=== PATIENT | female | born 1940 | race Caucasian/White ===

== ENCOUNTER 2019-07-23 10:39 | Outpatient (CLI) | payer MEDICARE, SELFPAY ==
[2019-07-23] MEDS: DENOSUMAB 60 MG/ML SYRINGE SUB-Q (10:59)
--- NOTE | 2019-07-23 11:09 | PC.NURSE ---
Patient here for annual Prolia injection. No concerns. Gave medication info to patient. Tolerated injection well. Safe exit of hospital.
== END 2019-07-23 10:40 | disposition home or self-care (01) ==
PROVIDERS: PCP Internal Medicine; Visit Provider Internal Medicine
DX: M81.0 Age-related osteoporosis without current pathological fracture (principal)
CPT/HCPCS: 96372; J0897

== ENCOUNTER 2020-01-23 11:56 | Outpatient (CLI) | payer MEDICARE, SELFPAY ==
[2020-01-23] MEDS: DENOSUMAB 60 MG/ML SYRINGE SUB-Q (12:12)
[2020-01-23 12:22] VITALS: BP 121/70; PULSE 64; RESP 16; TEMP 36.6; O2SAT 100
--- NOTE | 2020-01-23 12:24 | PC.NURSE ---
Patient here for annual Prolia injection. Has had injection before. Declines teaching/education at this time. Prolia injection given see MAR. Tolerated injection well. Safe exit of hospital.
== END 2020-01-23 11:57 | disposition home or self-care (01) ==
PROVIDERS: PCP Internal Medicine; Visit Provider Internal Medicine
DX: M81.0 Age-related osteoporosis without current pathological fracture (principal)
CPT/HCPCS: 96372; J0897

== ENCOUNTER 2020-07-23 13:06 | Outpatient (CLI) | payer MEDICARE, SELFPAY ==
[2020-07-23] MEDS: DENOSUMAB 60 MG/ML SYRINGE SUB-Q (13:19)
== END 2020-07-23 13:07 | disposition home or self-care (01) ==
PROVIDERS: PCP Internal Medicine; Visit Provider Internal Medicine
DX: M81.0 Age-related osteoporosis without current pathological fracture (principal)
CPT/HCPCS: 96372; J0897

== ENCOUNTER 2020-07-29 13:04 | Outpatient (CLI) | payer MEDICARE, SELFPAY ==
--- NOTE | ~2020-07-29 | DEXA_ITS ---
Bone Density Report Name: Reena Muro Age: 80 Sex: Female Ethnicity: White Date of : 1940 Indication: hyperparathyroidism; height loss; prior fracture; Referring Provider: Adithya Waite Study: Bone densitometry was performed. Exam Date: July 29, 2020 Accession number: [id number] Bone Density: Region BMD T-score Z-score Classification AP Spine(L1, L2, L3) 0.802 -2.0 0.6 Osteopenia Femoral Neck (Left) 0.691 -1.4 0.8 Osteopenia Total Hip (Left) 0.613 -2.7 -0.7 Osteoporosis Femoral Neck (Right) 0.651 -1.8 0.4 Osteopenia Total Hip (Right) 0.654 -2.4 -0.4 Osteopenia Femoral Neck Mean 0.671 -1.6 0.6 Osteopenia Total Hip Mean 0.634 -2.5 -0.6 Osteoporosis World Health Organization criteria for BMD impression classify patients as: Normal (T-score at or above -1.0), Osteopenia (T-score between -1.0 and -2.5), or Osteoporosis (T-score at or below -2.5). 10-year Fracture Risk: FRAX not reported because: Some T-score for Spine Total or Hip Total or Femoral Neck at or below -2.5 Prior hip or vertebral fracture Treated for osteoporosis Clinical Information Provided by Patient: Have had a previous hip or vertebral fracture Has had a low trauma fracture Is being treated for osteoporosis Has used the following medications: Prolia (i.e. denosumab), Vitamin D Has the following medical conditions: Hyperparathyroidism Patient maximum height was 66 Menopause Age: 49 No regular weight bearing exercise Drinks caffeinated beverages Onset of menses at age 15 Number of children 0 Impression: The patient has established osteoporosis, based on the Left Total Hip T-score and the existence of a prior fracture. The patient has risk factors, including: previous fracture. Discussion: It is important to ask patients whether they are taking their medications and to encourage continued and appropriate compliance with their osteoporosis therapies to reduce fracture risk. It is also important to review their risk factors and encourage appropriate calcium and vitamin D intakes, exercise, fall prevention and other lifestyle measures. Follow-Up: Consider a repeat BMD and Vertebral Fracture Assessment (VFA) exam in 2 years or sooner if medically necessary, to reassess this patient's status. Reported by: Dr. Jos Dixon on 07/29/2020 1:45:00 PM. Reviewed, dictated and finalized at location A. [facility]
== END 2020-07-29 13:05 | disposition home or self-care (01) ==
LOC: CHSIMG 13:05
PROVIDERS: PCP Internal Medicine; Visit Provider Internal Medicine
DX: M81.0 Age-related osteoporosis without current pathological fracture (principal)
CPT/HCPCS: 77080

== ENCOUNTER 2021-02-19 10:56 | Outpatient (CLI) | payer MEDICARE, OTHER, SELFPAY ==
[2021-02-19 11:05] VITALS: BP 129/66; PULSE 68; RESP 16; TEMP 36.8; O2SAT 98; BMI 21.3
[2021-02-19] MEDS: DENOSUMAB 60 MG/ML SYRINGE SUB-Q (11:10)
--- NOTE | 2021-02-19 11:11 | PC.NURSE ---
Patient here for Prolia injection. Had it about 6 months ago. NO concerns voiced. Injection given- see JUL. Tolerated well. Safe exit of hospital. Will return need again August. Will call for an appointment with new order.
== END 2021-02-19 10:57 | disposition home or self-care (01) ==
LOC: CHSTREATRM 11:00
PROVIDERS: PCP Internal Medicine; Visit Provider Internal Medicine
DX: M81.0 Age-related osteoporosis without current pathological fracture (principal)
CPT/HCPCS: 96372; J0897

== ENCOUNTER 2021-07-14 15:46 | Outpatient (CLI) | payer MEDICARE, OTHER, MEDICAID, SELFPAY ==
--- NOTE | ~2021-07-14 | XR_ITS ---
EXAMINATION: XR hand RT min 3V DATE: 07/14/2021 16:06 INDICATION: Right hand pain with limited movement and swelling TECHNIQUE: Posteroanterior, oblique and lateral views of the right hand were obtained. COMPARISON: 07/10/2010 FINDINGS: Diffuse osteopenia. No fracture. Advanced osteoarthritis at the first carpometacarpal joint with incr ease in dorsal subluxation and volar sided remodeling at the base of the first metacarpal. Alignment is otherwise normal. Additional mild polyarticular osteoarthritis at the midcarpal, triscaphe and mul tiple metacarpophalangeal and interphalangeal joints. IMPRESSION: 1. Advanced osteoarthritis at the first carpometacarpal joint. Reviewed, dictated and finalized at location A. [facility] [employer]
== END 2021-07-14 15:47 | disposition home or self-care (01) ==
LOC: CHSIMG 15:50
PROVIDERS: PCP Internal Medicine; Visit Provider Internal Medicine
DX: M79.641 Pain in right hand (principal)
CPT/HCPCS: 73130

== ENCOUNTER 2021-09-04 13:11 | Outpatient (CLI) | payer MEDICARE, OTHER, MEDICAID, SELFPAY ==
[2021-09-04 13:18] VITALS: BMI 20.9
[2021-09-04 13:19] VITALS: BP 120/63; PULSE 72; RESP 14; TEMP 36.6; O2SAT 97
[2021-09-04] MEDS: DENOSUMAB 60 MG/ML SYRINGE SUB-Q (13:25)
--- NOTE | 2021-09-04 13:27 | PC.NURSE ---
Patient here for q 6 month Prolia injection. Education given. No concerns voiced. Prolia injection administered see MAR. Tolerated well. Safe exit of hospital.
== END 2021-09-04 13:12 | disposition home or self-care (01) ==
LOC: CHSTREATRM 13:14
PROVIDERS: PCP Internal Medicine; Visit Provider Internal Medicine
DX: M81.0 Age-related osteoporosis without current pathological fracture (principal)
CPT/HCPCS: 96372; J0897

== ENCOUNTER 2022-01-05 09:55 | Outpatient (CLI) | payer MEDICARE, OTHER, MEDICAID, SELFPAY ==
--- NOTE | ~2022-01-05 | MR_ITS ---
EXAMINATION: MR cervical spine wo con DATE: 01/05/2022 11:11 INDICATION: Chronic neck pain TECHNIQUE: Magnetic resonance imaging (MRI) of the cervical spine was performed without intravenous c ontrast. Sequences included sagittal T2-weighted FSE, sagittal T2-weighted FS FSE, sagittal T1-weight ed FSE, axial MERGE and axial T2-weighted FSE. COMPARISON: None FINDINGS: Mild reversal of the normal lordosis in the lower cervical spine. 2 mm anterolisthesis C4 on C5, one- 2 mm retrolisthesis C6 on C7 and 1 mm anterolisthesis C7 on T1. Severe disc height loss with degenera tive endplate changes and remodeling results in minimal anterior vertebral body height loss at C5 and C6. Remaining vertebral body heights are normal. Moderate disc height loss at C6-C7. Mild disc heigh t loss at C4-C5 and C7-T1. There are annular fissures at each of these levels. Prominent fibrovascula r endplate changes associated with the severe disc height loss at both C5 and C6. Additional mild fib rovascular degenerative endplate changes along the superior endplate of C7. Marrow signal is otherwis e normal. Cord signal intensity is normal. Cervical soft tissues are unremarkable. The following disc levels are specifically discussed: C2-C3: The disc does not extend beyond the endplate margin. There is mild left uncovertebral joint os teoarthritis. There is moderate right and severe left facet joint osteoarthritis. There is mild left neural foraminal stenosis. There is no central canal stenosis. C3-C4: Disc is mildly bulging. There is moderate bilateral uncovertebral joint osteoarthritis. There is moderate right and severe left facet joint osteoarthritis. There is mild right and moderate left n eural foraminal stenosis. There is mild central canal stenosis. C4-C5: Disc is bulging. There is moderate right and severe left uncovertebral joint osteoarthritis. T here is moderate right and severe left facet joint osteoarthritis. There is mild right and moderate l eft neural foraminal stenosis. There is mild central canal stenosis. C5-C6: Posterior disc osteophyte complex is present. There is severe bilateral uncovertebral joint os teoarthritis. There is moderate right and mild left facet joint osteoarthritis. There is moderate meghna ateral neural foraminal stenosis. There is mild to moderate central canal stenosis measuring 7 mm AP in the mid sagittal plane. Secondary deformation of the cord with mild indentation of the ventral diamond face and with decreased AP diameter and increased ovjd-ge-nstum diameter of the cord C6-C7: Disc is bulging. There is severe bilateral uncovertebral joint osteoarthritis. There is mild l eft and moderate right facet joint osteoarthritis. There is moderate bilateral, left greater than rig ht neural foraminal stenosis. There is mild to moderate central canal stenosis measuring 8-9 mm AP in the mid sagittal plane and with flattening of the ventral surface of the cord. C7-T1: Disc is mildly bulging. There is mild bilateral uncovertebral joint osteoarthritis. There is m oderate right and severe left facet joint osteoarthritis. There is mild bilateral neural foraminal st enosis. There is mild central canal stenosis. IMPRESSION: 1. Severe cervical spondylosis. Reviewed, dictated and finalized at location A.
--- NOTE | ~2022-01-05 | XR_ITS ---
EXAM: XR_CERV2-3V_CR DATE: 01/05/2022 10:22 HISTORY: chronic neck pain . COMPARISON: 04/11/2012. FINDINGS: Craniocervical association and atlantoaxial joint are aligned, with moderate degenerative changes. No prevertebral soft tissue swelling. Grade 1 trace anterolisthesis of C2 on C3 and C3 on C4 . Grade 2 anterolisthesis of C4 on C5. Severe disc height loss with sclerosis and osteophytosis worst at at C5-6 but also severe at C6-7. Multilevel facet sclerosis and hypertrophy. IMPRESSION: Grade 2 anterolisthesis of C4 on C5. Severe degenerative disc disease at C5-6 and C6-7. M ultilevel severe facet arthropathy. Overall the degenerative changes have progressed since the prior study. Reviewed, dictated and finalized at location K. IMPRESSION: Grade 2 anterolisthesis of C4 on C5. Severe degenerative disc disea se at C5-6 and C6-7. Multilevel severe facet arthropathy. Overall the degenerat emily changes have progressed since the prior study.
== END 2022-01-05 09:56 | disposition home or self-care (01) ==
LOC: CHSIMG 09:57
PROVIDERS: PCP Internal Medicine; Visit Provider Internal Medicine
DX: M54.2 Cervicalgia (principal)
CPT/HCPCS: 72040; 72141

== ENCOUNTER 2022-07-30 12:24 | Outpatient (CLI) | payer MEDICARE, OTHER, SELFPAY ==
[2022-07-30] MEDS: DENOSUMAB 60 MG/ML SYRINGE SUB-Q (12:43)
[2022-07-30 13:54] VITALS: BMI 22.6
== END 2022-07-30 12:25 | disposition home or self-care (01) ==
PROVIDERS: PCP Internal Medicine; Visit Provider Internal Medicine
DX: M81.0 Age-related osteoporosis without current pathological fracture (principal)
CPT/HCPCS: 96372; J0897

== ENCOUNTER 2022-08-08 09:51 | Emergency (ER) | payer MEDICARE, OTHER, SELFPAY ==
--- NOTE | ~2022-08-08 | CT_ITS ---
EXAMINATION: CT pelvis wo con DATE: 08/08/2022 10:49 INDICATION: Low back pain. TECHNIQUE: Computed tomography (CT) of the pelvis was performed without intravenous contrast. Automat ed exposure control and iterative reconstruction technique were employed. The dose-length product was 203.89 mGy-cm. COMPARISON: CT abdomen and pelvis 04/23/2015 FINDINGS: There is a 2 mm stone in right kidney. There is mild bilateral hydronephrosis, likely secon pio to bladder distention. There is diverticulosis of the colon without evidence of diverticulitis. There are no dilated loops of bowel. The appendix is not visualized. There are no pathologically enla rged lymph nodes. There is no free intraperitoneal fluid. There is lumbar levoscoliosis and severe sp ondylosis. There is a chronic burst fracture of L5. No acute fracture. There is moderate osteoarthrit is of the right hip and severe osteoarthritis of left hip. There is a loose body in left hip joint. IMPRESSION: 1. Moderate osteoarthritis of right hip and severe osteoarthritis of left hip with loose body in left hip joint. Reviewed, dictated and finalized at location A. IMPRESSION: 1. Moderate osteoarthritis of right hip and severe osteoarthritis of left hip w ith loose body in left hip joint.
--- NOTE | ~2022-08-08 | CT_ITS ---
EXAMINATION: CT lumbar spine wo con DATE: 08/08/2022 10:49 INDICATION: Back pain. TECHNIQUE: Computed tomography (CT) of the lumbar spine was performed without intravenous contrast. A utomated exposure control and iterative reconstruction technique were employed. The dose-length produ ct was 692.50 mGy-cm. COMPARISON: None FINDINGS: There is 14 degrees levoscoliosis of lumbar spine. There is 9 mm anterolisthesis of L4 on L 5. There is a chronic compression fracture of L2 with less than 1/5 loss of height. There is a burst fracture of L3 with 1/5 loss of height and retropulsion of bone 2 mm into central spinal canal. There is a chronic burst fracture of L5 with 2/5 loss of height and retropulsion of bone 3 mm into central spinal canal. There is severely decreased disc height at L1-L2, moderately decreased disc height at L2-L3, mildly decreased disc height from L3-L4 through L5-S1. There is Baastrup disease at L3-L4. The following disc levels are specifically discussed: L1-L2: The disc is bulging. There is moderate bilateral facet joint osteoarthritis. There is mild meghna ateral neural foraminal stenosis. There is mild central canal stenosis. L2-L3: The disc is bulging. There is severe bilateral facet joint osteoarthritis. There is mild bilat eral neural foraminal stenosis. There is mild central canal stenosis. L3-L4: The disc is bulging. There is severe bilateral facet joint osteoarthritis. There is mild bilat eral neural foraminal stenosis. There is mild central canal stenosis. L4-L5: The disc is bulging. There is severe bilateral facet joint osteoarthritis. There is mild bilat eral neural foraminal stenosis. There is severe central canal stenosis. L5-S1: The disc is bulging. There is severe bilateral facet joint osteoarthritis. There is mild bilat eral neural foraminal stenosis. There is mild central canal stenosis. IMPRESSION: 1. L3 burst fracture, likely acute or subacute. 2. Severe lumbar spondylosis. 3. Lumbar levoscoliosis. Reviewed, dictated and finalized at location A.
[2022-08-08 11:00] VITALS: BP 137/74; PULSE 70; RESP 18; O2SAT 96
[2022-08-08 11:10] LABS: Appearance Urine Clear (Clear); Bilirubin Urine Negative (Negative); Blood Urine Negative (Negative); Color Urine Light Yellow (Yellow); Glucose Urine UA Negative (Negative); Ketones Urine Negative (Negative); Leukocyte Esterase Ur Negative LEU/UL (Negative); Nitrate Urine Negative (Negative); Protein Urine Negative (Negative); Urobilinogen Urine 0.2 mg/dL (0.2-1.0)
[2022-08-08 11:12] LABS: Add Urine Microscopic? NO
--- NOTE | 2022-08-08 11:13 | ED.BACK ---
HPI - Back Pain/Injury General Chief Complaint: Back Pain/Injury Stated Complaint: lower back pain Time Seen by Provider: 08/08/22 10:07 Source: patient Mode of arrival: ambulatory Limitations: no limitations History of Present Illness HPI Narrative: 82 year old female presents to the Emergency Department complaining of pain to right sacral region. Patient states onset 3 days ago. She was seen by her Primary Care Physician and given injection of steroids and advised to take Tylenol. She is supposed to follow up tomorrow, but states she cannot wait. States pain is too much. Pain with certain movements. Denies trauma. Denies urinary tract symptoms. States she does have a history of sciatica in the past. States the pain does not radiate down her leg. Denies any numbness or tingling. MD elicited complaint: back pain Onset (ago): day(s) (3) Timing: intermittent Severity: severe Similar Symptoms Previously: Yes Quality: sharp Location: sacrum Radiation: none Exacerbating factors: movement Relieving factors: other (certain positions) Associated symptoms: difficulty walking Treatments prior to arrival: acetaminophen and other medications (steroid injection) Work related injury: No Related Data Home Medications Medication Instructions Recorded Confirmed levothyroxine 50 mcg tablet 50 mcg PO DAILY 09/04/21 08/08/22 Allergies Allergy/AdvReac Type Severity Reaction Status Date / Time No Known Allergies Allergy Verified 08/08/22 10:02 Review of Systems Review of Systems: All systems reviewed & are unremarkable except as noted in HPI and below Constitutional: Constitutional: Reports as per HPI, Reports no additional constitutional complaints, Denies chills, Denies fever(s) and Denies weakness Eyes: Eyes: Reports as per HPI ENT: Reports system reviewed and no additional complaints, except as documented Cardiovascular: Cardiovascular: Reports as per HPI Respiratory: Respiratory: Reports as per HPI Gastrointestinal: Gastrointestinal: Reports as per HPI, Denies diarrhea, Denies nausea and Denies vomiting Genitourinary: Genitourinary: Reports no additional female genitourinary complaints, Denies nocturia and Denies dysuria Musculoskeletal: Musculoskeletal: Reports no additional musculoskeletal complaints, Reports as per HPI and Reports back pain Integumentary/Breasts: Skin/Breast: Reports system reviewed and no additional complaints, except as docu Neurologic: Reports system reviewed and no additional complaints, except as documented, Denies focal weakness, Denies numbness and Denies weakness Psychiatric: Psychiatric: Reports no additional psychiatric complaints Endocrine: Endocrine: Reports no additional endocrine complaints Hematologic/Lymphatic: Hematologic/Lymphatic: Reports no additional hematologic/lymphatic complaints Allergic/Immunologic: Allergic/Immunologic: Reports no additional allergic/immunologic complaints FORMERLY [facility], [facility] Past Medical History Medical History (Updated 08/08/22 @ 11:40 by Bernardo Schaeffer MD) Compression fracture of lumbar vertebra, non-traumatic Exam Const: General: healthy appearing Nutritional Appearance: well nourished Orientation/consciousness: patient oriented x3 Limitations: no limitations HENMT: Head: normal to inspection Ears: external ears normal Face/Nose/Sinus: Normal external nose present Face and sinus: normal facial exam Eyes: Conjunctivae: conjunctivae normal Pupils: Equal, round and reactive pupils present EOM: EOMs intact bilaterally Direct Ophthalmoscopy: no photophobia Neck: Neck: normal visual inspection Chest: Chest palpation & inspection: normal inspection of the chest Resp: Effort & Inspection: normal respiratory effort Auscultation: clear to auscultation bilaterally Cardio: Rate: regular rate Rhythm: regular rhythm GI: Inspection: non-distended GI Palp: Yes Soft to palpation, No Tenderness to palpation present (GI), No Guarding due to palpa
== END 2022-08-08 11:48 | disposition home or self-care (01) ==
PROVIDERS: Emergency Provider Emergency Medicine; PCP Internal Medicine
DX: M48.56XA Collapsed vertebra, not elsewhere classified, lumbar region, initial encounter for fracture (principal)
CPT/HCPCS: 72131; 72192; 81003; 99284

== ENCOUNTER 2022-08-14 06:06 | Outpatient (CLI) | payer MEDICARE, OTHER, SELFPAY ==
--- NOTE | ~2022-08-14 | MR_ITS ---
MRI of the lumbar spine Clinical History: L3 fracture Technique: Axial T2-weighted images, and sagittal T1-weighted, T2-weighted, and T2 fat-sat images wer e acquired. Findings: There is acute compression fracture of L3, with marrow edema and mild loss of height. There is a late subacute to chronic compression fracture of L5, with central endplate depression and possi ble minimal marrow edema present. No other fracture identified. 8 mm anterolisthesis of L4 over L5 no ronn. At L1-L2, there is mild facet joint hypertrophy. Minimal disc bulge present. No spinal canal stenosis . There is probable mild to moderate bilateral neural foraminal narrowing. At L2-L3, there is mild disc bulge with facet joint arthropathy. No betty spinal canal stenosis. Ther e is moderate right neural foraminal narrowing and mild left neural foraminal narrowing. At L3-L4, there is facet arthropathy with minimal disc bulge. No betty spinal canal stenosis. Bilater al neural foramina are preserved. At L4-L5, disc bulge and uncovering, with facet arthropathy, result in severe spinal canal stenosis/t hecal sac compression. There is moderate bilateral neural foraminal narrowing. At L5-S1, there is facet arthropathy and minimal disc bulge. No spinal canal stenosis. There is moder ate left neural foraminal narrowing and minimal right neural foraminal narrowing. Paravertebral soft tissues are unremarkable. Impression: Acute L3 compression fracture, as detailed above. Late subacute to chronic L5 compression fracture, as detailed above. 8 mm anterolisthesis of L4 over L5. Severe degenerative spondylosis at L4-L5, as detailed above. Mild to moderate degenerative spondylitic changes at the remaining lumbar levels. Reviewed, dictated and finalized at [facility]. Impression: Acute L3 compression fracture, as detailed above. Late subacute to chronic L5 compression fracture, as detailed above. 8 mm anterolisthesis of L4 over L5. Severe degenerative spondylosis at L4-L5, as detailed above. Mild to moderate degenerative spondylitic changes at the remaining lumbar level s.
== END 2022-08-14 06:07 | disposition home or self-care (01) ==
PROVIDERS: PCP Internal Medicine; Visit Provider Internal Medicine
DX: S32.030A Wedge compression fracture of third lumbar vertebra, initial encounter for closed fracture (principal); M43.16 Spondylolisthesis, lumbar region
CPT/HCPCS: 72148

== ENCOUNTER 2022-08-20 09:42 | Outpatient (CLI) | payer MEDICARE, OTHER, SELFPAY ==
--- NOTE | ~2022-08-20 | US_ITS ---
EXAMINATION: US venous doppler [facility] DATE: 08/20/2022 10:24 INDICATION: Lower limb edema. TECHNIQUE: Grayscale ultrasound images without and with compression and Doppler ultrasound images of the bilateral lower extremity veins were obtained. COMPARISON: None. FINDINGS: The visualized portions of right common femoral vein, profunda (deep) femoral vein, femoral vein, pop liteal vein, peroneal veins, posterior tibial veins, and greater saphenous vein outflow are patent. The visualized portions of left common femoral vein, profunda femoral vein, femoral vein, popliteal v ein, peroneal veins, posterior tibial veins, and greater saphenous vein outflow are patent. IMPRESSION: 1. No deep venous thrombosis. Reviewed, dictated and finalized at location A.
[2022-08-20 10:05] LABS: Hemoglobin 10.7 g/dL (11.7-13.8); Mean Corpuscular HGB Conc 33.4 g/dL (32.0-36.0); Mean Corpuscular Hemoglobin 32.3 pg (27.0-31.0); Mean Corpuscular Volume 96.7 fL (78.0-102.0); Mean Platelet Volume 10.5 fl (9.2-11.8); Platelet Count Result 170 K/mm3 (150-420); Red Blood Count 3.31 M/mm3 (4.20-5.40); Red Cell Distribution Width 12.1 % (11.6-14.4); White Blood Count 3.6 K/mm3 (4.8-10.8)
[2022-08-20 10:40] LABS: Band Neutrophils Percent 0 % (0-6); Basophils Absolute Manual 0.03 K/mm3 (0-0.1); Basophils Percent Manual 1 % (0-1); Eosinophils Absolute Manual 0.03 K/mm3 (0.02-0.5); Eosinophils Percent Manual 1 % (1-6); Lymphocytes Percent Manual 14 % (18-44); Monocytes Absolute Manual 0.54 K/mm3 (0.1-0.90); Monocytes Percent Manual 15 % (3-9); Neutrophils Absolute Manual 2.48 K/mm3 (1.7-7.2); Neutrophils Percent Manual 69 % (46-73); Platelet Estimate Adequate (Adequate); Total Cells Counted 100
[2022-08-20 11:25] LABS: Alanine Aminotransferase 27 U/L (14-59); Albumin Level 3.7 g/dL (3.4-5.0); Alkaline Phosphatase 115 U/L (46-116); Anion Gap 5 mmol/L (8-16); Aspartate Amino Transferase 24 U/L (15-37); Bilirubin,Total 0.5 mg/dL (0.00-1.00); Blood Urea Nitrogen 9 mg/dL (7-18); Calcium 8.4 mg/dL (8.5-10.1); Carbon Dioxide 30 mmol/L (21-32); Chloride 97 mmol/L (98-108); Estimated Glomerular Filt Rate > 60; Free T3 1.76 pg/mL (2.18-3.98); Free T4 Free Thyroxine 1.35 ng/dL (0.76-1.46); Glucose 100 mg/dL (70-99); NT Pro B Type Natriuretic Pept 210 pg/mL (0-450); Osmolality Calculated 272 mOsm/kg (285-295); Potassium 4.4 mmol/L (3.5-5.1); Sodium 132 mmol/L (136-145); Thyroid Stimulating Hormone 2.51 uIU/mL (0.36-3.74); Total Protein 6.7 g/dL (6.4-8.2)
== END 2022-08-20 09:43 | disposition home or self-care (01) ==
LOC: CHSLAB 09:44
PROVIDERS: PCP Internal Medicine; Visit Provider Internal Medicine
DX: M79.89 Other specified soft tissue disorders (principal); I50.9 Heart failure, unspecified; R53.83 Other fatigue
CPT/HCPCS: 36415; 80053; 83880; 84439; 84443; 84481; 85025; 93970

== ENCOUNTER 2022-09-29 10:22 | Outpatient (CLI) | payer MEDICARE, OTHER, SELFPAY ==
--- NOTE | ~2022-09-29 | DEXA_ITS ---
Bone Density Report Name: FRANK GENAO Age: 82 Sex: Female Ethnicity: White Date of : 1940 Indication: hyperparathyroidism; height loss; prior fracture; Referring Provider: Adithya Waite Study: Bone densitometry was performed. Exam Date: September 29, 2022 Accession number: [id number] Bone Density: Region BMD T-score Z-score Classification Femoral Neck (Left) 0.653 -1.8 0.6 Osteopenia Total Hip (Left) 0.651 -2.4 -0.3 Osteopenia Femoral Neck (Right) 0.682 -1.5 0.8 Osteopenia Total Hip (Right) 0.706 -1.9 0.2 Osteopenia Femoral Neck Mean 0.667 -1.6 0.7 Osteopenia Total Hip Mean 0.678 -2.2 -0.1 Osteopenia World Health Organization criteria for BMD impression classify patients as: Normal (T-score at or above -1.0), Osteopenia (T-score between -1.0 and -2.5), or Osteoporosis (T-score at or below -2.5). 10-year Fracture Risk: FRAX not reported because: Prior hip or vertebral fracture Treated for osteoporosis Clinical Information Provided by Patient: Have had a previous hip or vertebral fracture Has had a low trauma fracture Is being treated for osteoporosis Has used the following medications: Prolia (i.e. denosumab), Vitamin D Has the following medical conditions: Hyperparathyroidism Patient maximum height was 66 Menopause Age: 49 No regular weight bearing exercise Drinks caffeinated beverages Onset of menses at age 15 Number of children 0 Impression: The patient has low bone mass, based on the Left Total Hip T-score. The patient has risk factors, including: previous fracture. Discussion: It is important to ask patients whether they are taking their medications and to encourage continued and appropriate compliance with their osteoporosis therapies to reduce fracture risk. It is also important to review their risk factors and encourage appropriate calcium and vitamin D intakes, exercise, fall prevention and other lifestyle measures. Follow-Up: Consider a repeat BMD and Vertebral Fracture Assessment (VFA) exam in 2 years or sooner if medically necessary, to reassess this patient's status. Reported by: Dr. Jos Dixon on 09/29/2022 10:54:00 AM. Reviewed, dictated and finalized at location A.
== END 2022-09-29 10:23 | disposition home or self-care (01) ==
LOC: CHSIMG 10:23
PROVIDERS: PCP Internal Medicine; Visit Provider Internal Medicine
DX: M85.89 Other specified disorders of bone density and structure, multiple sites (principal)
CPT/HCPCS: 77080

== ENCOUNTER 2022-11-11 14:11 | Outpatient (CLI) | payer MEDICARE, OTHER, MEDICAID, SELFPAY ==
--- NOTE | ~2022-11-11 | XR_ITS ---
Right Shoulder Technique: AP and scapular Y views were obtained. Clinical History: Pain Findings: No fracture or dislocation is seen. Osseous alignment is anatomic. There is minimal degener ative change of the glenohumeral and acromioclavicular joints. Soft tissues are unremarkable. Impression: Minimal degenerative changes, as above. No fracture or dislocation. Reviewed, dictated and finalized at location . Impression: Minimal degenerative changes, as above. No fracture or dislocation.
== END 2022-11-11 14:12 | disposition home or self-care (01) ==
LOC: CHSIMG 14:16
PROVIDERS: PCP Internal Medicine; Visit Provider Nurse Practitioner Family
DX: M25.511 Pain in right shoulder (principal)
CPT/HCPCS: 73030

== ENCOUNTER 2022-11-17 16:03 | Outpatient (RCR) | payer MEDICARE, OTHER, MEDICAID, SELFPAY ==
--- NOTE | 2022-11-17 16:47 | PTOPEVAL1 ---
Assessment and note entered by JT File, PT Evaluation Information Assessment Status Evaluation Diagnosis R shoulder pain, frozen shoulder, DJD Onset Subjective Information patient reports she has been having pain in the R shoulder for about 1.5 months. she reports no injury. she reports she was told by her MD she has a frozen shoulder and most likely a tear in the RTC. she reports she does have OA in the R shoulder. she reports she has pain and stiffness with movement after a long rest, and with reaching out away from her body to lift an object. she reports difficulty doing her hair and reaching overhead. she reports she is unable to lift some groceries into tall shelves or refrigerator due to pain and weakness. Reported Pain Level Pain Score 4: Self Report Assessment PT Clinical Summary mrs. hermosillo is an 82 yo woman who presents to skilled PT services for evaluation and treatment of R shoulder pain. she presents today with decreased arom, strength, and functional movement. she is also complicated by pain with movement, and tenderness to palpation. all of the above indicating a RTC tendonitis/tear and OA of the R shoulder. she would benefit from continued skilled PT to address her objective/functional deficits and progress towards a return to her prior level functional activity performance/quality of life. Plan of Care Interventions Electrical Stimulation,Hot Pack/Cold Pack,Manual Therapy,Neuro Re-education,Patient/Caregiver Educati,Therapeutic Activities,Therapeutic Exercise PT Services Indicated Yes Treatment Frequency and 3x weekly for 9 visits Duration These treatments will address the objective and functional deficits as defined above. The patient will be advanced safely and appropriately in order for the patient to progress towards his/her prior level of function. Additional exercises will be introduced and as well as a comprehensive home exercise program upon discharge, if needed, ?to ensure carryover of functional gains achieved in the clinic. This treatment plan has been reviewed and agreement upon by the patient.
--- NOTE | 2022-11-17 16:47 | OPREHPOC ---
Outpatient Therapy Plan of Care This is a Multidisciplinary Plan of Care that may contain components documented by all disciplines (PT, OT, and ST.) PT Problem 1 PT Problem #1 Knowledge Deficit PT Goal 1 Goal 1. independent and compliant with HEP to improve tolerance for continued skilled PT and exercises. Target Visit 6 PT Problem 2 PT Problem #2 Pain PT Goal 1 Goal 1. decrease pain at worst to 3/10 or less in the R shoulder in the last week to improve qualilty of life and functional activity performance Target Visit 9 PT Problem 3 PT Problem #3 Impaired Range of Motion PT Goal 1 Goal 1. improve arom R shoulder flexiont to 140 degrees or better 2. improve arom R shoulder ER to 65 degrees or better 3. improve arom R shoulder IR to 65 degrees or better Target Visit 9 PT Problem 4 PT Problem #4 Impaired Strength PT Goal 1 Goal 1. improve R shoulder strength to 4+/5 or better overall Target Visit 9 PT Problem 5 PT Problem #5 Impaired Functional Mobil PT Goal 1 Goal 1. patient to reach behind back and head with the R arm equal to that of the L arm without pain 2. patient to lift 5lb weight to shoulder level shelf height x10 3. patient to perfrom daily hair care independent 4. quick dash to display less than 15% functional deficits Target Visit 9
--- NOTE | 2022-12-17 16:12 | OPREHPOC ---
Outpatient Therapy Plan of Care This is a Multidisciplinary Plan of Care that may contain components documented by all disciplines (PT, OT, and ST.) PT Problem 1 PT Problem #1 Knowledge Deficit PT Goal 1 Goal 1. independent and compliant with HEP to improve tolerance for continued skilled PT and exercises. Target Visit 6 Progress Met PT Problem 2 PT Problem #2 Pain PT Goal 1 Goal 1. decrease pain at worst to 3/10 or less in the R shoulder in the last week to improve qualilty of life and functional activity performance Target Visit 9 Progress Met PT Problem 3 PT Problem #3 Impaired Range of Motion PT Goal 1 Goal 1. improve arom R shoulder flexiont to 140 degrees or better 2. improve arom R shoulder ER to 65 degrees or better 3. improve arom R shoulder IR to 65 degrees or better Target Visit 9 Progress Met PT Problem 4 PT Problem #4 Impaired Strength PT Goal 1 Goal 1. improve R shoulder strength to 4+/5 or better overall Target Visit 9 Progress Partially Met PT Problem 5 PT Problem #5 Impaired Functional Mobil PT Goal 1 Goal 1. patient to reach behind back and head with the R arm equal to that of the L arm without pain 2. patient to lift 5lb weight to shoulder level shelf height x10 3. patient to perfrom daily hair care independent 4. quick dash to display less than 15% functional deficits Target Visit 9 Progress Met
--- NOTE | 2022-12-17 16:12 | PTOPDC ---
Assessment and note entered by Elina Kohler DPT Evaluation Information Assessment Status Re-evaluation Diagnosis R shoulder pain, frozen shoulder, DJD Onset Subjective Information Patient reports her shoulder has improved since starting PT. She reports she has been able to do her hair with no increase in pain. She reports she only time she has been having pain is when she reaches far behind her. Reported Pain Level Pain Score 1: Self Report Assessment PT Clinical Summary Patient was seen for 9 visits of skilled PT with great progress towards goals. Patient met or partially met all goals set. She demonstrates improved R shoulder strength and ROM and improved ability to fix her hair and complete her daily activities. Patient is independent with HEP and is appropriate for DC at this time. Plan of Care PT Services Indicated No
== END 2022-12-17 16:17 | disposition home or self-care (01) ==
LOC: CHSPT 16:03
PROVIDERS: PCP Internal Medicine; Visit Provider Internal Medicine
DX: M25.511 Pain in right shoulder (principal); M75.01 Adhesive capsulitis of right shoulder; M19.011 Primary osteoarthritis, right shoulder
CPT/HCPCS: 97014; 97110; 97161; G0283

== ENCOUNTER 2023-02-02 10:57 | Outpatient (CLI) | payer MEDICARE, OTHER, SELFPAY ==
[2023-02-02 11:16] VITALS: BP 150/70; PULSE 72; RESP 14; TEMP 36.6; O2SAT 99
[2023-02-02 11:17] VITALS: BMI 20.5
[2023-02-02] MEDS: DENOSUMAB 60 MG/ML SYRINGE SUB-Q (11:21)
--- NOTE | 2023-02-02 11:22 | PC.NURSE ---
Patient here for q 6 month Prolia injection. Education given. No concerns voiced. Injection administered. SEE MAR. Tolerated well. Will return 08/02/22 at 1100. Safe exit of hospital per ambulatory/self.
== END 2023-02-02 10:58 | disposition home or self-care (01) ==
PROVIDERS: PCP Internal Medicine; Visit Provider Internal Medicine
DX: M81.0 Age-related osteoporosis without current pathological fracture (principal)
CPT/HCPCS: 96372; J0897

== ENCOUNTER 2023-03-29 11:56 | Outpatient (CLI) | payer MEDICARE, OTHER, SELFPAY ==
[2023-03-29 12:16] LABS: Hematocrit 36.4 % (35.0-42.0); Hemoglobin 12.1 g/dL (11.7-13.8); Immature Platelet Fraction Pct 7.5 % (1.0-7.0); Mean Corpuscular HGB Conc 33.2 g/dL (32.0-36.0); Mean Corpuscular Hemoglobin 32.6 pg (27.0-31.0); Mean Corpuscular Volume 98.1 fL (78.0-102.0); Platelet Count Result 126 K/mm3 (150-420); Red Blood Count 3.71 M/mm3 (4.20-5.40); Red Cell Distribution Width 12.5 % (11.6-14.4); White Blood Count 4.1 K/mm3 (4.8-10.8)
[2023-03-29 12:24] LABS: Anion Gap 4 mmol/L (8-16); Blood Urea Nitrogen 13 mg/dL (7-18); Calcium 8.6 mg/dL (8.5-10.1); Carbon Dioxide 33 mmol/L (21-32); Chloride 96 mmol/L (98-108); Estimated Glomerular Filt Rate > 60; Glucose 84 mg/dL (70-99); Osmolality Calculated 275 mOsm/kg (285-295); Potassium 3.6 mmol/L (3.5-5.1); Sodium 133 mmol/L (136-145)
[2023-03-29 12:25] LABS: Appearance Urine Clear (Clear); Bilirubin Urine Negative (Negative); Blood Urine Negative (Negative); Color Urine Yellow (Yellow); Glucose Urine UA Negative (Negative); Ketones Urine Negative (Negative); Leukocyte Esterase Ur Negative (Negative); Nitrate Urine Negative (Negative); Protein Urine Trace (Negative); Specific Grav Ur 1.015 (1.010-1.020)
[2023-03-29 12:42] LABS: Band Neutrophils Percent 0 % (0-6); Neutrophils Absolute Manual 3.44 K/mm3 (1.7-7.2); Neutrophils Percent Manual 84 % (46-73); Total Cells Counted 100
[2023-03-29 12:43] LABS: Basophils Percent Manual 0 % (0-1); Eosinophils Percent Manual 0 % (1-6); Lymphocytes Absolute Manual 0.16 K/mm3 (1.1-4.5); Lymphocytes Percent Manual 4 % (18-44); Monocytes Absolute Manual 0.49 K/mm3 (0.1-0.90); Monocytes Percent Manual 12 % (3-9); Platelet Estimate Adequate (Adequate)
[2023-03-29 12:45] LABS: Add Urine Microscopic? YES; RBC Urine None seen /hpf (0-2); WBC Urine None seen /hpf (0-3)
[2023-03-29 12:46] LABS: Strep Group A RT-PCR NOT DETECTED (Negative)
[2023-03-29 12:47] LABS: Squamous Epithelial Cell Urine None seen /hpf (Few)
[2023-03-29 12:48] LABS: Bacteria Urine Rare /hpf
[2023-03-29 12:53] LABS: Influenza A QL RT-PCR Negative (Negative); Influenza B QL RT-PCR Negative (Negative); SARS-CoV-2 RNA PCR Positive (Negative)
== END 2023-03-29 11:57 | disposition home or self-care (01) ==
PROVIDERS: PCP Internal Medicine; Visit Provider Internal Medicine
DX: J32.9 Chronic sinusitis, unspecified (principal); R50.9 Fever, unspecified
CPT/HCPCS: 36415; 80048; 81001; 85025; 85055; 87086; 87636; 87651

== ENCOUNTER 2023-08-04 13:01 | Outpatient (CLI) | payer MEDICARE, OTHER, SELFPAY ==
[2023-08-04 13:09] VITALS: BP 123/78; PULSE 78; RESP 14; TEMP 36.6; O2SAT 98
[2023-08-04] MEDS: DENOSUMAB 60 MG/ML SYRINGE SUB-Q (13:17)
--- NOTE | 2023-08-04 13:17 | PC.NURSE ---
Patient here for q 6 month Prolia injection. Education given. No concerns voiced. Prolia injection administered. SEE MAR. Tolerated well. Will come back in 6 month 02/06/24 at 1300. Safe exit of hospital per self/ambulatory.
== END 2023-08-04 13:19 | disposition home or self-care (01) ==
PROVIDERS: PCP Internal Medicine; Visit Provider Internal Medicine
DX: M81.0 Age-related osteoporosis without current pathological fracture (principal)
CPT/HCPCS: 96372; J0897

== ENCOUNTER 2023-08-23 10:02 | Outpatient (CLI) | payer MEDICARE, SELFPAY ==
[2023-08-23 10:24] LABS: Hematocrit 38.2 % (35.0-42.0); Hemoglobin 12.6 g/dL (11.7-13.8); Mean Corpuscular Hemoglobin 31.1 pg (27.0-31.0); Mean Corpuscular Volume 94.3 fL (78.0-102.0); Platelet Count Result 148 K/mm3 (150-420); Red Blood Count 4.05 M/mm3 (4.20-5.40); Red Cell Distribution Width 12.4 % (11.6-14.4)
[2023-08-23 10:27] LABS: Appearance Urine Clear (Clear); Bilirubin Urine Negative (Negative); Blood Urine Negative (Negative); Color Urine Yellow (Yellow); Glucose Urine UA Negative (Negative); Ketones Urine Negative (Negative); Leukocyte Esterase Ur Negative LEU/UL (Negative); Nitrate Urine Negative (Negative); Protein Urine Negative (Negative); Specific Grav Ur 1.015 (1.010-1.020); Urobilinogen Urine 0.2 mg/dL (0.2-1.0)
[2023-08-23 10:42] LABS: Add Urine Microscopic? NO
[2023-08-23 10:54] LABS: Band Neutrophils Percent 0 % (0-6); Basophils Percent Manual 0 % (0-1); Eosinophils Absolute Manual 0.09 K/mm3 (0.02-0.50); Eosinophils Percent Manual 3 % (1-6); Lymphocytes Absolute Manual 0.75 K/mm3 (1.1-4.5); Lymphocytes Percent Manual 25 % (18-44); Monocytes Absolute Manual 0.36 K/mm3 (0.1-0.90); Monocytes Percent Manual 12 % (3-9); Neutrophils Percent Manual 60 % (46-73); Platelet Estimate Adequate (Adequate); Total Cells Counted 100
[2023-08-23 11:24] LABS: Alanine Aminotransferase 32 U/L (14-59); Albumin Level 3.9 g/dL (3.4-5.0); Alkaline Phosphatase 56 U/L (46-116); Anion Gap 6 mmol/L (4-12); Aspartate Amino Transferase 30 U/L (15-37); Bilirubin,Total 0.9 mg/dL (0.00-1.00); Blood Urea Nitrogen 10 mg/dL (7-18); Calcium 8.4 mg/dL (8.5-10.1); Carbon Dioxide 32 mmol/L (21-32); Chloride 97 mmol/L (98-108); Estimated Glomerular Filt Rate > 60; Glucose 88 mg/dL (70-99); Osmolality Calculated 278 mOsm/kg (285-295); Potassium 4.2 mmol/L (3.5-5.1); Sodium 135 mmol/L (136-145); Thyroid Stimulating Hormone 2.46 uIU/mL (0.36-3.74); Vitamin B12 514 pg/mL (193-986)
[2023-08-23 16:42] LABS: Cholesterol 221 mg/dL (0-200); Free T3 1.93 pg/mL (2.18-3.98); Free T4 Free Thyroxine 1.02 ng/dL (0.76-1.46); HDL Direct 102 mg/dL (40-60); LDL Cholesterol Calculated 113 mg/dL (<130); Triglycerides 28 mg/dL (0-150)
[2023-08-24 23:03] LABS: Vitamin D 25 Hydroxy 32 ng/mL (30-100)
== END 2023-08-23 10:03 | disposition home or self-care (01) ==
LOC: CHSLAB 10:04
PROVIDERS: PCP Internal Medicine; Visit Provider Internal Medicine
DX: D70.9 Neutropenia, unspecified (principal); E03.4 Atrophy of thyroid (acquired); M81.0 Age-related osteoporosis without current pathological fracture; E53.8 Deficiency of other specified B group vitamins; E78.2 Mixed hyperlipidemia; N39.0 Urinary tract infection, site not specified
CPT/HCPCS: 36415; 80053; 80061; 81003; 82306; 82607; 84439; 84443; 84481; 85025

== ENCOUNTER 2023-09-15 09:04 | Outpatient (CLI) | payer MEDICARE, OTHER, SELFPAY ==
--- NOTE | ~2023-09-15 | MR_ITS ---
MRI of the left hip Clinical history: Pain Technique: Coronal T1-weighted, T2-weighted, and proton-density fat-sat images, and axial T1-weighted and proton-density fat-sat images were acquired through the pelvis. Coronal T2-weighted images and c oronal, axial, and sagittal proton-density fat-sat images were acquired through the left hip. Findings: No evidence for fracture or avascular necrosis of either hip. Bone marrow signals the proxi mal femora and pelvic bones appear to be unremarkable. Bilateral hip joint spaces are relatively well -preserved, probable minimal degenerative changes and minimal superolateral acetabular spurring bilat erally. No joint effusion evident. Probable degenerative tearing of the left acetabular labrum, espec ially at the superior posterior superior aspect. There is greater trochanteric bursitis. There is extensive edematous change at the distal gluteus min imus medius muscle belly near its greater trochanteric insertion. Remaining musculature about the lef t hip appears intact. IMPRESSION: Left greater trochanter bursitis. Extensive edematous change at the distal gluteus medius muscle belly and tendon region near the great er trochanteric insertion. Partial high-grade tearing of the distal tendon insertion cannot be exclud ed. Coronal images are limited due to extremely poor fat suppression. Reviewed, dictated and finalized at location . IMPRESSION: Left greater trochanter bursitis. Extensive edematous change at the distal gluteus medius muscle belly and tendon region near the greater trochanteric insertion. Partial high-grade tearing of the distal tendon insertion cannot be excluded. Coronal images are limited due to extremely poor fat suppression.
== END 2023-09-15 09:05 | disposition home or self-care (01) ==
LOC: CHSIMG 09:05
PROVIDERS: PCP Internal Medicine; Visit Provider Internal Medicine
DX: M25.552 Pain in left hip (principal); M71.552 Other bursitis, not elsewhere classified, left hip
CPT/HCPCS: 73721

== ENCOUNTER 2024-02-16 10:35 | Outpatient (CLI) | payer MEDICARE, OTHER, SELFPAY ==
[2024-02-16] MEDS: DENOSUMAB 60 MG/ML SYRINGE SUB-Q (10:50)
[2024-02-16 11:07] VITALS: BP 138/77; PULSE 78; RESP 14; TEMP 36.5; O2SAT 98
--- NOTE | 2024-02-16 11:09 | PC.NURSE ---
Patient here for every 6 month Prolia injection. Education given. No concerns. Has received over 6 of these in past years and reports no difficulties from. Injection administered. SEE MAR/patient care notes. Tolerated well.
== END 2024-02-16 11:13 | disposition home or self-care (01) ==
PROVIDERS: PCP Internal Medicine; Visit Provider Internal Medicine
DX: M81.0 Age-related osteoporosis without current pathological fracture (principal)
CPT/HCPCS: 96372; J0897

== ENCOUNTER 2024-06-07 14:40 | Outpatient (CLI) | payer MEDICARE, SELFPAY ==
--- NOTE | ~2024-06-07 | DEXA_ITS ---
Bone Density Report Name: FRANK GENAO Age: 84 Sex: Female Ethnicity: White Date of : 1940 Indication: osteopenia; monitoring treatment; hyperparathyroidism; height loss; prior fracture; Referring Provider: Adithya Waite Study: Bone densitometry was performed. Exam Date: June 07, 2024 Accession number: [id number] Bone Density: Region BMD T-score Z-score Classification AP Spine(L1, L4) 0.900 -1.2 1.5 Osteopenia Femoral Neck (Left) 0.682 -1.5 0.9 Osteopenia Total Hip (Left) 0.699 -2.0 0.2 Osteopenia Femoral Neck (Right) 0.650 -1.8 0.6 Osteopenia Total Hip (Right) 0.722 -1.8 0.4 Osteopenia Femoral Neck Mean 0.666 -1.7 0.7 Osteopenia Total Hip Mean 0.710 -1.9 0.3 Osteopenia World Health Organization criteria for BMD impression classify patients as: Normal (T-score at or above -1.0), Osteopenia (T-score between -1.0 and -2.5), or Osteoporosis (T-score at or below -2.5). 10-year Fracture Risk: FRAX not reported because: Prior hip or vertebral fracture Treated for osteoporosis Previous Exams: Region Exam Age BMD T-score BMD Change BMD Change Date g/cm2 vs Baseline vs Previous Total Hip(Left) 06/07/2024 84 0.699 -2.0 0.086 (14.0%)# 0.048 (7.4%)# 09/29/2022 82 0.651 -2.4 0.037 (6.1%)* 0.037 (6.1%)* 07/29/2020 80 0.613 -2.7 *Denotes significance at 95% confidence level, LSC for Total Hip = 0.027 g/cm2 # Denotes dissimilar scan types or analysis methods Clinical Information Provided by Patient: Have had a previous hip or vertebral fracture Has had a low trauma fracture Is being treated for osteoporosis Has used the following medications: Prolia (i.e. denosumab), Vitamin D Has the following medical conditions: Hyperparathyroidism Patient maximum height was 66 Menopause Age: 49 No regular weight bearing exercise Drinks caffeinated beverages Onset of menses at age 16 Number of children 0 Impression: The patient has low bone mass, based on the Left Total Hip T-score. The patient has risk factors, including: previous fracture. No significant bone loss was observed. Discussion: PATIENT UNDER TREATMENT WITH NO SIGNIFICANT BMD LOSS SINCE LAST EXAM. In an untreated patient, BMD typically declines with age. A lack of decline or gain is usually a sign that treatment is efficacious and fracture risk is reduced. It is important to ask patients whether they are taking their medications and to encourage continued and appropriate compliance with their osteoporosis therapies to reduce fracture risk. It is also important to review their risk factors and encourage appropriate calcium and vitamin D intakes, exercise, fall prevention and other lifestyle measures. Follow-Up: Consider a repeat BMD and Vertebral Fracture Assessment (VFA) exam in 2 years or sooner if medically necessary, to reassess this patient's status. Reported by: FARIBA on 06/07/2024 3:12:00 PM. Reviewed, dictated and finalized at location A.
--- OUTSIDE RECORDS SUMMARY | 2024-06-07 15:16 | XMS_ITS | Clinical Summary ---
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 Active Active Problems Problem Noted Date Diagnosed Date Leukopenia 12/31/2016 Family History Medical History Relation Name Comments No Known Problems Brother Heart Disease Father Diabetes Mother Heart Disease Mother Diabetes Sister Relation Name Status Comments Brother Alive Father Mother Sister Alive Social History Tobacco Use Types Packs/Day Years Used Date Smoking Tobacco: Former Cigarettes 1 25 0 12/31/1974 - 01/01/2000 Comments Unknown Sex and Gender Information Value Date Recorded Sex Assigned at Not on file Legal Sex Female 2:29 PM CDT Gender Identity Not on file Sexual Orientation Not on file Last Filed Vital Signs Vital Sign Reading Time Taken Comments Blood Pressure 117/67 01/06/2017 11:51 AM CDT Pulse 69 01/06/2017 11:51 AM CDT Temperature 37 ??C (98.6 ??F) 01/06/2017 11:51 AM CDT Respiratory Rate 16 12/31/2016 10:49 AM CDT Oxygen Saturation - - Inhaled Oxygen Concentration - - Weight 58.7 kg (129 lb 6.4 oz) 01/06/2017 11:50 AM CDT Height 162.6 cm (5' 4 ) 01/06/2017 11:51 AM CDT Body Mass Index 22.21 01/06/2017 11:50 AM CDT Plan of Treatment Health Maintenance Due Date Last Done Comments DTAP/TDAP/TD VACCINES (1 - Tdap) 1961 PNEUMOCOCCAL VACCINE 65+ YEA RS (1 of 1 - PCV) 1992 ZOSTER VACCINE (1 of 2) 1992 RSV VACCINE (60+ or ) (1 - 1-dose 75+ series) 2017 INFLUENZA VACCINE (#1) 2023 OSTEOPOROSIS SCREENING Completed 04/12/2017, 2015 Insurance MEDICARE PART A AND B [employer] MEDICARE SUPP AESSI Care Teams Cigar Maker Relationship Specialty Start Date End Date Adithya Waite MD [address] [place] [id number] PCP - General Internal Medicine 12/31/16
--- OUTSIDE RECORDS SUMMARY | 2024-06-07 15:16 | XMS_ITS | Encounter Summary ---
Author Organization [facility] Address [address] [place] [address]. 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
--- OUTSIDE RECORDS SUMMARY | 2024-06-07 15:16 | XMS_ITS | Clinical Summary ---
Author Organization [facility] Address [address] [place] [address]. 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 SPECIALIST Gender Identity Not on file Sexual Orientation Not on file Plan of Treatment Health Maintenance Due Date Last Done Comments DTaP, Tdap and Td Vaccines ( 1 - Tdap) 1961 Zoster Vaccines (1 of 2) 1992 Dexa Scan (General) 2007 Pneumococcal Vaccine: 65+ Ye ars (1 of 1 - PCV) 2007 RSV Immunization or 60+ Years (1 - 1-dose 75+ series) 2017 COVID-19 Vaccine (2023-2 5 season) 2024 Influenza Adult (#1) 2024 Meningococcal B Vaccine Aged Out No l onger eligible based on patient's age to complete this topic Meningococcal Vaccine Aged Out No rohini josué eligible based on patient's age to complete this topic RSV Immunizations Under 20 Months Aged Out No longer eligible based on patient's age to complete this topic
== END 2024-06-07 14:41 | disposition home or self-care (01) ==
LOC: CHSIMG 14:46
PROVIDERS: PCP Internal Medicine; Visit Provider Internal Medicine
DX: Z78.0 Asymptomatic menopausal state (principal); M85.89 Other specified disorders of bone density and structure, multiple sites
CPT/HCPCS: 77080

== ENCOUNTER 2024-08-20 16:22 | Outpatient (CLI) | payer MEDICARE, SELFPAY ==
--- NOTE | ~2024-08-20 | XR_ITS ---
Right Shoulder Technique: AP and scapular Y views were obtained. Clinical History: Pain Findings: No fracture or dislocation is seen. Osseous alignment is anatomic. The glenohumeral and acr omioclavicular joints demonstrate mild degenerative change. Soft tissues are unremarkable. Impression: Mild degenerative change, as above. Reviewed, dictated and finalized at location . Impression: Mild degenerative change, as above.
--- OUTSIDE RECORDS SUMMARY | 2024-08-20 17:42 | XMS_ITS | Clinical Summary ---
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 Active Problems Problem Noted Date Diagnosed [...] 69 01/06/2017 11:51 AM CDT Temperature 37 C (98.6 F) 01/06/2017 11:51 AM CDT Respiratory Rate 16 [...] VACCINES (1 - Tdap) 1961 PNEUMOCOCCAL VACCINE 50+ YEA RS (1 of 1 - PCV) 1992 ZOSTER VACCINE (1 of 2) 1992 RSV VACCINE (60+ or ) (1 - 1-dose 75+ series) 2017 INFLUENZA VACCINE (#1) 2023 OSTEOPOROSIS SCREENING Completed 04/12/2017, 2015 Insurance MEDICARE PART A AND B AETNA MEDICARE SUPP AESSI Care Teams Aircraft Riveter Relationship Specialty Start Date End Date Adithya Waite MD [address] [place] [address] PCP - General Internal Medicine 12/31/16
--- OUTSIDE RECORDS SUMMARY | 2024-08-20 17:42 | XMS_ITS | Clinical Summary ---
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 Gender Identity Not on file Sexual Orientation Not on file Plan of Treatment Health Maintenance Due Date Last Done Comments DTaP, Tdap and Td Vaccines ( 1 - Tdap) 1961 Zoster Vaccines (1 of 2) 1992 Dexa Scan (General) 2007 Pneumococcal Vaccine: 50+ Ye ars (1 of 1 - PCV) 2007 RSV Immunization or 60+ Years (1 - 1-dose 75+ series) 2017 COVID-19 Vaccine (2023-2 5 season) 2024 Meningococcal B Vaccine Aged Out No l onger eligible based on patient's age to complete this topic Meningococcal Vaccine Aged Out No rohini josué eligible based on patient's age to complete this topic RSV Immunizations Under 20 Months Aged Out No longer eligible based on patient's age to complete this topic
--- OUTSIDE RECORDS SUMMARY | 2024-08-20 17:42 | XMS_ITS | Encounter Summary ---
Author Organization [facility] Address [address] [place] [address] Care Team Providers Care Branch Director Name Role Phone Unavailable Primary Care Provider Unavailabl e Encounter Details Date Type Department Care Team (Late st Contact Info) Description 10/14/2018 Abstract SFL CONVERSION [address] [place] [address] , Generic Conversion, Social History Tobacco Use Types Packs/Day Years Used Date Smoking Tobacco: Never Assessed Comments Unknown Sex and Gender Information Value Date Recorded Sex Assigned at Not on file Legal Sex Female 5:52 PM TREASURY CONSULTANT Gender Identity Not on file Sexual Orientation Not on file documented as of this encounter Plan of Treatment Not on file documented as of this encounter Visit Diagnoses Not on filedocumented in this encounter
== END 2024-08-20 16:23 | disposition home or self-care (01) ==
PROVIDERS: PCP Internal Medicine; Visit Provider Internal Medicine
DX: M25.511 Pain in right shoulder (principal)
CPT/HCPCS: 73030

== ENCOUNTER 2024-08-24 12:33 | Outpatient (CLI) | payer MEDICARE, SELFPAY ==
--- OUTSIDE RECORDS SUMMARY | 2024-08-24 12:37 | XMS_ITS | Clinical Summary ---
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
--- OUTSIDE RECORDS SUMMARY | 2024-08-24 12:37 | XMS_ITS | Clinical Summary ---
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 Active Active Problems Problem Noted Date Diagnosed [...] B AETNA MEDICARE SUPP AESSI Care Teams Manager Professional Development Relationship Specialty Start Date End Date Adithya Waite MD [address] [place] [address] PCP - General Internal Medicine 12/31/16
--- OUTSIDE RECORDS SUMMARY | 2024-08-24 12:37 | XMS_ITS | Encounter Summary ---
Author Organization [facility] Address [address] [place] [address] Care Team Providers Care Senior Database Programmer Name Role Phone Unavailable Primary Care Provider Unavailabl e Encounter Details Date Type Department Care Team (Late st Contact Info) Description 10/14/2018 Abstract SFL CONVERSION [address] [place] [address] , Generic Conversion, Social History Tobacco Use Types Packs/Day Years Used Date Smoking Tobacco: Never Assessed Comments Unknown Sex and Gender Information Value Date Recorded Sex Assigned at Not on file Legal Sex Female 5:52 PM ORGANIZATIONAL RESEARCH CONSULTANT Gender Identity Not on file Sexual Orientation Not on file documented as of this encounter Plan of Treatment Not on file documented as of this encounter Visit Diagnoses Not on filedocumented in this encounter
[2024-08-24] MEDS: ZOLEDRONIC ACID 5 MG/100 ML 100 ML 300 MG IVPB (12:50)
[2024-08-24 12:51] VITALS: BP 124/70; PULSE 72; RESP 16; TEMP 36.6; O2SAT 98; BMI 19.6
[2024-08-24 13:10] VITALS: BP 126/68; PULSE 72; RESP 14
--- NOTE | 2024-08-24 13:17 | PC.NURSE ---
Patient here for IV Reclast infusion. Education given. All concerns voiced answered. Infusion administered. SEE MAR/patient care notes. Tolerated well.
== END 2024-08-24 12:34 | disposition home or self-care (01) ==
PROVIDERS: PCP Internal Medicine; Visit Provider Internal Medicine
DX: M81.0 Age-related osteoporosis without current pathological fracture (principal)
CPT/HCPCS: 96365; 96374; J3489

== ENCOUNTER 2024-08-25 07:45 | Outpatient (CLI) | payer MEDICARE, SELFPAY ==
--- NOTE | ~2024-08-25 | MR_ITS ---
MRI of the right shoulder Technique: Axial proton-density fat-sat images, coronal proton density fat-sat and T2 fat-sat images, and sagittal T1-weighted and T2 fat-sat images were acquired. Clinical History: Pain Findings: There is moderate AC joint degenerative change. Coracoclavicular, coracoacromial, coracohum eral ligaments are probably intact. There is probable complete full-thickness tears of the supraspinatus tendon with full-thickness tear of the anterior portion of the infraspinatus tendon. Posterior fibers infraspinatus tendon may remain intact. Fluid-filled gap measures approximately 3.5 x 4.1 cm in extent. The retracted tendon edges a re hyperintense and mildly frayed. Subscapularis tendon is intact with mild tendinosis. Tendon of rohini g head of the biceps is intact. There is probable superior labral tear extending to anterosuperior and posterior superior portions. L abral tear probably extends to the posterior portion at the equator. Inferior glenohumeral ligament is intact. Humeral head is mildly high riding with small inferomedial humeral head osteophyte. There is a large glenohumeral joint effusion with fluid passing through the rotator cuff defect into the subacromial/subdeltoid bursa. There is also fluid distention of the subs capularis recess. Suspected mild edematous change of the supraspinatus and infraspinatus muscle sohail es. 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 Edematous change of the supraspinatus and infrasp inatus muscle bellies. Probable degenerative SLAP tear of the labrum, with further extension to the posterior labrum at the equator. Moderate AC joint degenerative change. Mild glenohumeral joint degenerative change. Large glenohumeral joint effusion with fluid passing through the rotator cuff defect into the subacro mial/subdeltoid bursa. Additional fluid distention of the subscapularis recess of the joint. Reviewed, dictated and finalized at location M. 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 Edema tous change of the supraspinatus and infraspinatus muscle bellies. Probable degenerative SLAP tear of the labrum, with further extension to the po sterior labrum at the equator. Moderate AC joint degenerative change. Mild glenohumeral joint degenerative jenni nge. Large glenohumeral joint effusion with fluid passing through the rotator cuff d efect into the subacromial/subdeltoid bursa. Additional fluid distention of the subscapularis recess of the joint.
--- OUTSIDE RECORDS SUMMARY | 2024-08-25 07:50 | XMS_ITS | Encounter Summary ---
Author Organization [facility] Address [address] [place] [address] Care Team Providers Care Telephone Clerk Telegraph Office Name Role Phone Unavailable Primary Care Provider Unavailabl e Encounter Details Date Type Department Care Team (Late st Contact Info) Description 10/14/2018 Abstract SFL CONVERSION [address] [place] [address] , Generic Conversion, Social History Tobacco Use Types Packs/Day Years Used Date Smoking Tobacco: Never Assessed Comments Unknown Sex and Gender Information Value Date Recorded Sex Assigned at Not on file Legal Sex Female 5:52 PM SUPERVISOR PUMPING Gender Identity Not on file Sexual Orientation Not on file documented as of this encounter Plan of Treatment Not on file documented as of this encounter Visit Diagnoses Not on filedocumented in this encounter
--- OUTSIDE RECORDS SUMMARY | 2024-08-25 07:50 | XMS_ITS | Clinical Summary ---
Author Organization 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 Active Active Problems Problem Noted Date Diagnosed [...] B AETNA MEDICARE SUPP AESSI Care Teams Solicitor Patent Relationship Specialty Start Date End Date Adithya Waite MD [address] [place] [address] PCP - General Internal Medicine 12/31/16
--- OUTSIDE RECORDS SUMMARY | 2024-08-25 07:50 | XMS_ITS | Clinical Summary ---
Author Organization [facility] Address [address] [place] [address] Care Team Providers Care Sleeve Fixer Name Role Phone Unavailable Primary Care Provider Unavailabl e Social History Tobacco Use Types Packs/Day Years Used Date Smoking Tobacco: Never Assessed Comments Unknown Sex and Gender Information Value Date Recorded Sex Assigned at Not on file Legal Sex Female 5:52 PM FINANCIAL INSTITUTION PRESIDENT Gender Identity Not on file Sexual Orientation [...]
== END 2024-08-25 07:46 | disposition home or self-care (01) ==
LOC: CHSIMG 07:48
PROVIDERS: PCP Internal Medicine; Visit Provider Internal Medicine
DX: M25.511 Pain in right shoulder (principal); S46.811A Strain of other muscles, fascia and tendons at shoulder and upper arm level, right arm, initial encounter; M25.411 Effusion, right shoulder
CPT/HCPCS: 73221

== ENCOUNTER 2024-09-03 13:52 | Outpatient (RCR) | payer MEDICARE, SELFPAY ==
--- NOTE | 2024-09-03 13:53 | PTOPEVAL1 ---
Assessment and note entered by Cristiano Allan Evaluation Information Assessment Status Evaluation ICD-10 Condition Codes (PT) Pain in right shoulder M25.511 Onset 08/03/24 Subjective Information Pt. reports that she was sitting on her porch and reached away from her body. She states that she felt a pop in the arm, but no immediate pain. She states that the pain worsened over several days. She states that she had an MRI and x-ray which revealed a tear in her rotator cuff. She states that pain is located on the described lateral right shoulder. She reports that she is right hand dominant. She states that pain is worsened with reaching away from her body. She states that washing behind her back is difficult and she cannot reach into the overhead cabinets. She states that pain will wake her at night and she has to take ibuprofen to relieve her pain. She states that her goal is to reduce her right shoulder pain and be able to reach overhead. Reported Pain Level Pain Score 5: Self Report Assessment PT Clinical Summary Pt. is an 84 year old female who enters the clinic with a medical diagnosis of right shoulder pain due to rotator cuff tear. She presents with impaired right shoulder strength, impaired right shoulder ROM, right shoulder pain and functional decline. Continued skilled PT is indicated in order to improve these areas to allow the pt. to be able to complete all ADL's and IADL's with improved comfort and efficiency. Plan of Care Interventions Electrical Stimulation,Hot Pack/Cold Pack,Manual Therapy,Neuro Re-education,Patient/Caregiver Education,Therapeutic Activities,Therapeutic Exercise PT Services Indicated Yes Treatment Frequency and 2x/week x 10 visits Duration These treatments will address the objective and functional deficits as defined above. The patient will be advanced safely and appropriately in order for the patient to progress towards his/her prior level of function. Additional exercises will be introduced and as well as a comprehensive home exercise program upon discharge, if needed, ?to ensure carryover of functional gains achieved in the clinic. This treatment plan has been reviewed and agreement upon by the patient.
--- NOTE | 2024-10-05 12:06 | OPREHPOC ---
Outpatient Therapy Plan of Care This is a Multidisciplinary Plan of Care that may contain components documented by all disciplines (PT, OT, and ST.) PT Problem 1 PT Problem #1 Knowledge Deficit PT Goal 1 Goal / Goal Update Pt. will be independent with a HEP focusing on shoulder mobility episcopalian. Target Visit 2 Progress Met PT Problem 2 PT Problem #2 Impaired Strength PT Goal 1 Goal / Goal Update Pt. will present with 4-/5 gross right shoulder strength. -partially met Pt. will be able to lift 1-2# object overhead for 10 reps with the right u.e. in order to but objects in overhead cabinets -partially met, can perform in supine but not in standing Target Visit 10 Progress Partially Met PT Problem 3 PT Problem #3 Impaired Range of Motion PT Goal 1 Goal / Goal Update Pt. will demonstrate 150 degrees of active right shoulder flexion to assist with improved ability to perform functional overhead tasks Target Visit 10 Progress Met PT Problem 4 PT Problem #4 Impaired Functional Mobility PT Goal 1 Goal / Goal Update Pt. will present with less than 20% limitation on the Quick DASH indicating significant improvement in overall functional mobility. Target Visit 10 Progress Not Met
--- NOTE | 2024-10-05 12:06 | PTOPPROG ---
Assessment and note entered by Uma Mejias, PT Evaluation Information Assessment Status Progress ICD-10 Condition Codes (PT) Pain in right shoulder M25.511 Onset 08/03/24 Subjective Information Pt reports feeling like her motion and shoulder strength have improved. She still has pain with reaching overhead and also states her pain increases with changes in the weather, states I can tell rain is coming. Assessment PT Clinical Summary Mrs. Muro has attended 10 total skilled PT visits addressing R shoulder pain. Since beginning therapy she has made improvements in her R shoulder ROM and strength. She still demonstrates weakness in R shoulder ER strength, as well as continued pain with reaching to place objects in a cabinet. She has been independent with her HEP and while she has not met all her therapeutic goals, she would like to hold PT at this time and continue HEP on her own. Will follow up in a few weeks and resume therapy if needed. Plan of Care Interventions Electrical Stimulation,Hot Pack/Cold Pack,Manual Therapy,Neuro Re-education,Patient/Caregiver Education,Therapeutic Activities,Therapeutic Exercise PT Services Indicated Yes Treatment Frequency and Hold at this time, follow up in a few weeks and Duration resume PT as indicated These treatments will address the objective and functional deficits as defined above. The patient will be advanced safely and appropriately in order for the patient to progress towards his/her prior level of function. Additional exercises will be introduced and as well as a comprehensive home exercise program upon discharge, if needed, ?to ensure carryover of functional gains achieved in the clinic. This treatment plan has been reviewed and agreement upon by the patient.
--- NOTE | 2024-12-25 15:06 | PCPTNOTE ---
patient discharged after hold
== END 2024-12-02 23:59 | disposition home or self-care (01) ==
LOC: CHSPT 13:52
PROVIDERS: PCP Internal Medicine; Visit Provider Internal Medicine
DX: M25.511 Pain in right shoulder (principal)
CPT/HCPCS: 97014; 97110; 97112; 97140; 97150; 97161; G0283

== ENCOUNTER 2024-09-14 11:52 | Outpatient (CLI) | payer MEDICARE, SELFPAY ==
--- OUTSIDE RECORDS SUMMARY | 2024-09-14 11:55 | XMS_ITS | Encounter Summary ---
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
--- OUTSIDE RECORDS SUMMARY | 2024-09-14 11:55 | XMS_ITS | Clinical Summary ---
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
--- OUTSIDE RECORDS SUMMARY | 2024-09-14 11:55 | XMS_ITS | Clinical Summary ---
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 Active Active Problems Problem Noted Date Diagnosed [...] ) (1 - 1-dose 75+ series) 2017 OSTEOPOROSIS SCREENING 04/12/2022 04/12/2017, 2015 INFLUENZA VACCINE (#1) 2023 Insurance MEDICARE PART A AND B [employer] MEDICARE SUPP AESSI Care Teams Shoe Handler Relationship Specialty Start Date End Date Adithya Waite MD [address] [place] [address] PCP - General Internal Medicine 12/31/16
[2024-09-14 12:09] LABS: Hematocrit 39.6 % (35.0-42.0); Hemoglobin 12.7 g/dL (11.7-13.8); Mean Corpuscular HGB Conc 32.1 g/dL (32-36); Mean Corpuscular Hemoglobin 31.4 pg (27.0-31.0); Mean Corpuscular Volume 97.8 fL (78.0-102.0); Mean Platelet Volume 11.4 fl (9.2-11.8); Platelet Count Result 167 K/mm3 (150-420); Red Blood Count 4.05 M/mm3 (4.20-5.40); Red Cell Distribution Width 12.4 % (11.6-14.4); White Blood Count 3.2 K/mm3 (4.8-10.8)
[2024-09-14 12:16] LABS: Add Urine Microscopic? NO; Appearance Urine Clear (Clear); Bilirubin Urine Negative (Negative); Blood Urine Negative (Negative); Color Urine Light Yellow (Yellow); Glucose Urine UA Negative (Negative); Ketones Urine Negative (Negative); Leukocyte Esterase Ur Negative (Negative); Nitrate Urine Negative (Negative); Protein Urine Negative (Negative); Urobilinogen Urine 0.2 mg/dL (0.2-1.0)
[2024-09-14 12:58] LABS: Alanine Aminotransferase 20 U/L (6-35); Albumin Level 4.6 g/dL (3.5-5.1); Alkaline Phosphatase 63 U/L (38-126); Anion Gap 5 mmol/L (4-12); Aspartate Amino Transferase 38 U/L (14-36); Bilirubin,Total 1.2 mg/dL (0.2-1.3); Blood Urea Nitrogen 17 mg/dL (7-17); Calcium 8.7 mg/dL (8.4-10.2); Carbon Dioxide 30 mmol/L (22-30); Chloride 100 mmol/L (98-107); Estimated Glomerular Filt Rate > 60; Glucose 91 mg/dL (65-110); Iron 87 ug/dL (37-170); Osmolality Calculated 281 mOsm/kg (285-295); Sodium 135 mmol/L (137-145); Total Protein 7.3 g/dL (6.3-8.2)
[2024-09-14 13:15] LABS: Free T4 Free Thyroxine 1.64 ng/dL (0.78-2.19)
[2024-09-16 06:19] LABS: Vitamin D 25 Hydroxy 31 ng/mL (30-100)
== END 2024-09-14 11:53 | disposition home or self-care (01) ==
LOC: CHSLAB 11:53
PROVIDERS: PCP Internal Medicine; Visit Provider Internal Medicine
DX: D70.9 Neutropenia, unspecified (principal); E03.4 Atrophy of thyroid (acquired); E53.8 Deficiency of other specified B group vitamins; M81.0 Age-related osteoporosis without current pathological fracture; G62.9 Polyneuropathy, unspecified; D64.9 Anemia, unspecified
CPT/HCPCS: 36415; 80053; 81003; 82306; 82607; 82728; 83540; 84439; 84443; 85027

== ENCOUNTER 2024-10-03 11:24 | Outpatient (CLI) | payer MEDICARE, SELFPAY ==
--- OUTSIDE RECORDS SUMMARY | 2024-10-03 11:29 | XMS_ITS | Clinical Summary ---
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 Active Active Problems Problem Noted Date Diagnosed [...] 11:50 AM CDT Height 162.6 cm (5' 4) 01/06/2017 11:51 AM CDT Body Mass Index [...] B [employer] MEDICARE SUPP AESSI Care Teams Video Specialist Relationship Specialty Start Date End Date Adithya Waite MD [address] [place] [address] PCP - General Internal Medicine 12/31/16
[2024-10-03 12:28] LABS: CRP < 0.5 mg/dL (<1.0)
[2024-10-03 12:55] LABS: Erythrocyte Sedimentation Rate 12 mm/hr (0-20)
== END 2024-10-03 11:25 | disposition home or self-care (01) ==
LOC: CHSLAB 11:26
PROVIDERS: PCP Internal Medicine; Visit Provider Internal Medicine
DX: M35.3 Polymyalgia rheumatica (principal)
CPT/HCPCS: 36415; 85652; 86140

== ENCOUNTER 2024-10-08 09:29 | Outpatient (CLI) | payer MEDICARE, SELFPAY ==
--- NOTE | ~2024-10-08 | CT_ITS ---
Clinical Indication: Chronic abdominal pain, weight loss CT Scan of the Chest, Abdomen, and Pelvis with Contrast: Technique: Contiguous sections were acquired throughout the chest, abdomen, and pelvis after intraven ous administration of 100 cc of Omnipaque 350. Dose reduction technique was used on this scan by uti lizing automated exposure control and iterative reconstruction technique. The dose-length product (DL P) was 271.18 mGy-cm. Comparison: 08/26/2022 Findings: There is no evidence of any significant mediastinal, hilar or axillary lymphadenopathy. The mediastin al soft tissues appear normal. No aortic aneurysm or dissection. No pulmonary embolus evident. There is no evidence of pleural or pericardial effusion. There is upper lobe predominant chronic interstitial disease. There is 2.0 x 1.1 cm irregular consoli dation or nodule in the right upper lobe (axial image 22). Calcified left upper lobe granuloma presen t. There is severe compression fracture deformities of T7 and T9. The liver, spleen, pancreas, gallbladder, adrenals and kidneys are within normal limits. There are at herosclerotic calcifications of the aorta. No lymphadenopathy. No bowel obstruction or bowel wall thickening. There is no evidence to suggest acute appendicitis. Urinary bladder is unremarkable. No pelvic mass seen. No ascites evident. Impression: 2.0 x 1.1 cm irregular consolidation or nodule in the right upper lobe. This could reflect scarring/p ost inflammatory change versus neoplasm. Consider short-term follow-up exam, PET/CT, or tissue sampli ng. Background upper lobe predominant chronic interstitial disease. Severe compression fractures of T7 and T9, age-indeterminate. No significant abnormality in the abdomen or pelvis. Reviewed, dictated and finalized at location . Impression: 2.0 x 1.1 cm irregular consolidation or nodule in the right upper lobe. This co uld reflect scarring/post inflammatory change versus neoplasm. Consider short-t erm follow-up exam, PET/CT, or tissue sampling. Background upper lobe predominant chronic interstitial disease. Severe compression fractures of T7 and T9, age-indeterminate. No significant abnormality in the abdomen or pelvis.
--- OUTSIDE RECORDS SUMMARY | 2024-10-08 09:50 | XMS_ITS | Clinical Summary ---
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 Active Active Problems Problem Noted Date Diagnosed [...] B [employer] MEDICARE SUPP AESSI Care Teams Artificial Glass Eye Maker Relationship Specialty Start Date End Date Adithya Waite MD [address] [place] [address] PCP - General Internal Medicine 12/31/16
== END 2024-10-08 09:30 | disposition home or self-care (01) ==
LOC: CHSIMG 09:31
PROVIDERS: PCP Internal Medicine; Visit Provider Internal Medicine
DX: R10.9 Unspecified abdominal pain (principal); R63.4 Abnormal weight loss; R91.8 Other nonspecific abnormal finding of lung field; M48.54XA Collapsed vertebra, not elsewhere classified, thoracic region, initial encounter for fracture
CPT/HCPCS: 71260; 74177; Q9967

== ENCOUNTER 2024-10-25 10:31 | Outpatient (CLI) | payer MEDICARE, SELFPAY ==
--- NOTE | ~2024-10-25 | PE_ITS ---
EXAMINATION: PET skull to mid thigh DATE: 10/25/2024 12:40 INDICATION: Lung cancer TECHNIQUE: Blood glucose level was 95 mg/dL. 10.23 mCi of 18-fluorodeoxyglucose (18-FDG) was administ ered i.v. Low dose computed tomography (CT) images were acquired from the base of the brain to the pr oximal thighs for attenuation correction and anatomic localization. Positron emission tomography (PET ) images were acquired in the same distribution beginning 53 minutes after injection. Images includin g fused PET/CT images were reconstructed in axial, coronal, and sagittal planes. Automated exposure c ontrol technique was employed. The dose-length product was 419.37mGy-cm. COMPARISON: None FINDINGS: Head/neck: There is symmetric increased activity in the oral cavity, laryngeal muscles, ocular muscles and at th e right anterior paraspinal musculature at the craniocervical junction without CT correlate, likely p hysiologic. No pathologically enlarged cervical lymphadenopathy or suspicious foci of increased FDG u ptake in the visualized head or neck. Chest: Mild emphysema. Unchanged coarse reticular pattern of irregular septal line thickening at the periphe ry of the bilateral upper lungs with small region of peripheral consolidation posterolaterally at the right upper lobe which is without significant increased FDG uptake most consistent with chronic inte rstitial lung disease. Calcified left upper lobe nodule along with calcified left hilar lymph nodes c onsistent with old granulomatous disease. No other suspicious pulmonary nodules or pleural effusion. Heart size is normal. Atherosclerotic coronary artery calcific. No pericardial effusion. Thoracic aor ta is normal in caliber. No pathologically enlarged or FDG avid thoracic lymphadenopathy. Abdomen/pelvis/proximal thighs: Physiologic renal accumulation and excretion of FDG activity in the kidneys, bladder and along portio ns of ureters. There are right kidney is relatively low lying in the right lower quadrant and upper p amalia. Normal degree and heterogenous pattern of increased uptake throughout the liver without radiol ogic correlate or dominant FDG avid lesion. There are multiple calcifications in the spleen and a few in the liver consistent with old granulomatous disease. The gallbladder, pancreas and bilateral adre nal glands are normal. Mild uptake scattered throughout the bowels without radiologic correlate, also likely physiologic. No other abnormal foci of increased FDG uptake or pathologically enlarged lympha denopathy in the abdomen, pelvis or proximal thighs. Musculoskeletal: There is a large right glenohumeral joint effusion with associated FDG avid synovitis. Severe cervica l and thoracic spondylosis. Mild lumbar levoscoliosis with moderate spondylosis. There are multiple p ersistent compression fractures in the thoracic and lumbar spine. Prior vertebroplasty at L3. No susp icious lytic, blastic or abnormally FDG avid bone lesions. IMPRESSION: 1. No abnormal increased FDG uptake associated with likely chronic interstitial lung disease at the p eriphery of the bilateral upper lobes. While reassuring would recommend six-month follow-up low-dose noncontrast chest CT. 2. Likely synovial increased FDG uptake associated with a chronic large right glenohumeral joint effu afshni which may be reactive related to rotator cuff arthropathy with large full-thickness rotator cuff tear on MRI from 2 months prior. Reviewed, dictated and finalized at location A. IMPRESSION: 1. No abnormal increased FDG uptake associated with likely chronic interstitial lung disease at the periphery of the bilateral upper lobes. While reassuring w ould recommend six-month follow-up low-dose noncontrast chest CT. 2. Likely synovial increased FDG uptake associated with a chronic large right g lenohumeral joint effusion which may be reactive related to rotator cuff arthro fern with large full-thickness rotator cuff tear on MRI from 2 months prior.
[2024-10-25 11:03] LABS: Glucose Point of Care 95 mg/dl (65-105)
--- OUTSIDE RECORDS SUMMARY | 2024-10-25 11:21 | XMS_ITS | Encounter Summary ---
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
--- OUTSIDE RECORDS SUMMARY | 2024-10-25 11:21 | XMS_ITS | Clinical Summary ---
Author Organization [facility] Address [address] [facility] [place] [address] Care Team Providers Care Puppy Walker Name Role Phone Adithya Waite MD Primary Care Provider + Allergies No known active allergies Medications levothyroxine 50 mcg tablet Take 50 mcg by mouth daily straightener. Active Active Problems Problem Noted Date Diagnosed [...] B [employer] MEDICARE SUPP AESSI Care Teams Puppy Walker Relationship Specialty Start Date End Date Adithya Waite MD [address] [place] [address] PCP - General Internal Medicine 12/31/16
--- OUTSIDE RECORDS SUMMARY | 2024-10-25 11:21 | XMS_ITS | Clinical Summary ---
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
== END 2024-10-25 10:32 | disposition home or self-care (01) ==
PROVIDERS: PCP Internal Medicine; Visit Provider Internal Medicine
DX: D38.1 Neoplasm of uncertain behavior of trachea, bronchus and lung (principal)
CPT/HCPCS: 78815; A9552

== ENCOUNTER 2024-11-21 09:03 | Outpatient (CLI) | payer MEDICARE, SELFPAY ==
--- NOTE | ~2024-11-21 | US_ITS ---
US art doppler w press LE BI INDICATION: Peripheral arterial disease TECHNIQUE: Segmental pressures and plethysmographic and Doppler waveforms of the brachial and lower e xtremity arteries were obtained. COMPARISON: 11/21/2024. FINDINGS: Right and left brachial artery pressures of 138 mm Hg and 132 mm Hg, respectively, are concordant (no rmal difference <= 30 mmHg). There is biphasic flow bilaterally. The right ankle-brachial index (BELINDA) is 1.16 (normal >= 0.9-1.0). The right great toe-brachial index (TBI) is 0.67 (normal >= 0.60). The left BELINDA is 1.24. The left TBI is 0.7. IMPRESSION: 1. Normal ankle-brachial indices. Reviewed, dictated and finalized at location B.
--- NOTE | ~2024-11-21 | US_ITS ---
EXAMINATION:US venous doppler LE BI INDICATION:Leg edema TECHNIQUE: Multiple grayscale, color flow and Doppler images of the right and left lower extremity de ep venous systems were obtained and reviewed. COMPARISON:No prior studies for comparison. FINDINGS: The common femoral, superficial femoral and popliteal veins demonstrate normal respiratory variation, augmentation and compressibility. Color flow is also seen within the posterior tibial, pe roneal, greater saphenous and profunda veins. IMPRESSION: 1: No lower extremity deep venous thrombosis. Reviewed, dictated and finalized at location B.
--- OUTSIDE RECORDS SUMMARY | 2024-11-21 09:11 | XMS_ITS | Patient Health Record ---
Author Organization [facility] Address [address] [place], [place] [id number] Care Team Providers Care Coremaker Floor Name Role Phone JOSUE LOYA Unavailable [phone] Adithya Waite Unavailable Unavailable Reason For Referral No Information Plan Of Treatment No Information Insurance Providers Payer Name Payer Address Payer Phone Subscriber Number Group Number Insured Name Patient Relationship to Insured Coverage Start Date Coverage End Date Medicare Part B [place] [address] [place] [phone] [id number] FRANK GENAO Self - patient is the insured [facility] [address] [address] [place] [address] [id number] FRANK GENAO Self - patient is the insured
--- OUTSIDE RECORDS SUMMARY | 2024-11-21 09:11 | XMS_ITS | Clinical Summary ---
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 Active Active Problems Problem Noted Date Diagnosed [...] SCREENING 04/12/2022 04/12/2017, 2015 INFLUENZA VACCINE (#1) 2024 Insurance MEDICARE PART A AND B [employer] MEDICARE SUPP AESSI Care Teams Community Health Agent Relationship Specialty Start Date End Date Adithya Waite MD [address] [place] [id number] PCP - General Internal Medicine 12/31/16
== END 2024-11-21 09:04 | disposition home or self-care (01) ==
LOC: CHSIMG 09:05
PROVIDERS: PCP Internal Medicine; Visit Provider Internal Medicine
DX: I73.9 Peripheral vascular disease, unspecified (principal); M79.89 Other specified soft tissue disorders
CPT/HCPCS: 93923; 93970

== ENCOUNTER 2025-02-05 12:26 | Outpatient (CLI) | payer MEDICARE, SELFPAY ==
--- NOTE | ~2025-02-05 | US_ITS ---
RIGHT LOWER EXTREMITY VENOUS DUPLEX Clinical History: R Leg Swelling COMPARISON: 11/21/2024 TECHNIQUE: Grayscale, color, duplex/spectral Doppler sonography right leg FINDINGS: Right leg common femoral, femoral, popliteal, and calf veins compressible and color Doppler patent. Normal augmentation with distal compression. No internal echoes. IMPRESSION: 1. No right leg DVT. Reviewed, dictated and finalized at location R. IMPRESSION: 1. No right leg DVT.
--- NOTE | ~2025-02-05 | XR_ITS ---
XR lumbar spine 2-3V Indication: Low back pain Comparison: None Findings: Severe loss of vertebral height throughout. Moderate osteopenia. Levoconvex scoliosis. Grade 1 anterolisthesis of L4 on L5. There are remote compression fractures of L5 L3 L2 and L1 with loss of height of L3 82 cm with kyphoplasty changes. Severe loss of disc height throughout. Soft tissues unremarkable Impression: No acute abnormality. Reviewed, dictated and finalized at location P. Impression: No acute abnormality.
--- OUTSIDE RECORDS SUMMARY | 2025-02-05 12:29 | XMS_ITS | Patient Health Record ---
Author Organization [facility] Address [address] [place], [place] [address] Care Team Providers Care Chief Privacy Officer Name Role Phone JOSUE LOYA Unavailable [phone] Adithya Waite Unavailable Unavailable Reason For Referral No Information Plan Of Treatment No Information Insurance Providers Payer Name Payer Address Payer Phone Subscriber Number Group Number Insured Name Patient Relationship to Insured Coverage Start Date Coverage End Date Medicare Part B [place] [address] [place] [address] [id number] FRANK GENAO Self - patient is the insured [facility] Insurance [address] [address] [place] [address] [id number] FRANK GENAO Self - patient is the insured
--- OUTSIDE RECORDS SUMMARY | 2025-02-05 12:29 | XMS_ITS | Clinical Summary ---
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 Active Active Problems Problem Noted Date Diagnosed [...] B AETNA MEDICARE SUPP AESSI Care Teams Metal Handler Relationship Specialty Start Date End Date Adithya Waite MD [address] [place] [id number] PCP - General Internal Medicine 12/31/16
--- OUTSIDE RECORDS SUMMARY | 2025-02-05 12:29 | XMS_ITS | Encounter Summary ---
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
--- OUTSIDE RECORDS SUMMARY | 2025-02-05 12:29 | XMS_ITS | Clinical Summary ---
Author Organization 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
== END 2025-02-05 12:27 | disposition home or self-care (01) ==
LOC: CHSIMG 12:27
PROVIDERS: PCP Internal Medicine; Visit Provider Internal Medicine
DX: M79.89 Other specified soft tissue disorders (principal); M54.50 Low back pain, unspecified
CPT/HCPCS: 72100; 93971

== ENCOUNTER 2025-02-06 10:43 | Outpatient (CLI) | payer MEDICARE, SELFPAY ==
--- NOTE | ~2025-02-06 | CT_ITS ---
EXAMINATION: CTA chest PE protocol DATE: 02/06/2025 11:45 INDICATION: Shortness of breath. TECHNIQUE: Computed tomography angiography (CTA) of the chest was performed with 100 mL Omnipaque-350 intravenous contrast timed to evaluate the pulmonary arteries. Coronal maximum intensity projection 3D-reconstructions were created by the technologist. Automated exposure control and iterative reconstruction technique were employed. The dose-length product was 187.81 mGy-cm. COMPARISON: CT chest 10/08/2024, 04/23/2015 FINDINGS: There is mild emphysema. There is stable peripheral scarring in the upper lobes and superior segment right lower lobe. There is mild atelectasis bilaterally. Calcified left lung nodules and calcified left hilar lymph nodes are consistent with old granulomatous disease. No pleural effusion. There is no pulmonary embolus. Calcifications in the spleen are consistent with old granulomatous disease. There is a 1.5 cm mass in left adrenal gland measuring soft tissue attenuation, stable from 04/23/2015, likely an adenoma. There is kyphosis of thoracic spine. There is severe cervical spondylosis. There are chronic burst fractures of T7 and T9. There is a burst fracture of L1 with 1/5 loss of height. There are chronic burst fractures of L2 and L3 with changes of vertebroplasty at L3. IMPRESSION: 1. No pulmonary embolus. 2. Mild emphysema and mild chronic lung disease. 3. Acute versus subacute L1 burst fracture, new from 10/08/2024. Reviewed, dictated and finalized at location E.
--- NOTE | ~2025-02-06 | US_ITS ---
LEFT LOWER EXTREMITY VENOUS DUPLEX Clinical History: LEG SWELLING COMPARISON: 11/21/2024 TECHNIQUE: Grayscale, color, duplex/spectral Doppler sonography left leg FINDINGS: Left leg common femoral, femoral, popliteal, and calf veins compressible and color Doppler patent. Normal augmentation with distal compression. No internal echoes. Wall thickening greater saphenous vein. Small Mccartney's cysts. IMPRESSION: 1. No left leg DVT. 2. 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 Reviewed, dictated and finalized at location R. IMPRESSION: 1. No left leg DVT. 2. Nonspecific wall thickening greater saphenous vein, possibly chronic nonocc lusive thrombosis.
--- OUTSIDE RECORDS SUMMARY | 2025-02-06 11:31 | XMS_ITS | Clinical Summary ---
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
--- OUTSIDE RECORDS SUMMARY | 2025-02-06 11:31 | XMS_ITS | Clinical Summary ---
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 Active Active Problems Problem Noted Date Diagnosed [...] B AETNA MEDICARE SUPP AESSI Care Teams Capacity Planning Engineer Relationship Specialty Start Date End Date Adithya Waite MD [address] [place] [phone] PCP - General Internal Medicine 12/31/16
--- OUTSIDE RECORDS SUMMARY | 2025-02-06 11:31 | XMS_ITS | Encounter Summary ---
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
--- OUTSIDE RECORDS SUMMARY | 2025-02-06 11:31 | XMS_ITS | Patient Health Record ---
Author Organization [facility] Address [address] [place], [place] [address] Care Team Providers Care Fagot Heater Name Role Phone JOSUE LOYA Unavailable [phone] Adithya Waite Unavailable Unavailable Reason For Referral No Information Plan Of Treatment No Information Insurance Providers Payer Name Payer Address Payer Phone Subscriber Number Group Number Insured Name Patient Relationship to Insured Coverage Start Date Coverage End Date Medicare Part B [place] [address] [place] [address] [id number] FRANK GENAO Self - patient is the insured [facility] Insurance [address] [address] [place] [address] [id number] FRANK GENAO Self - patient is the insured
== END 2025-02-06 10:44 | disposition home or self-care (01) ==
LOC: CHSIMG 10:46
PROVIDERS: PCP Internal Medicine; Visit Provider Internal Medicine
DX: R06.02 Shortness of breath (principal); R79.1 Abnormal coagulation profile; R60.9 Edema, unspecified; J43.9 Emphysema, unspecified; J98.4 Other disorders of lung; S32.011A Stable burst fracture of first lumbar vertebra, initial encounter for closed fracture; I87.8 Other specified disorders of veins
CPT/HCPCS: 71275; 93971; Q9967

== ENCOUNTER 2025-03-14 15:58 | Outpatient (CLI) | payer MEDICARE, SELFPAY ==
--- NOTE | ~2025-03-14 | MR_ITS ---
MR lumbar spine wo con INDICATION: AGE RELATED OSTEOPOROSIS W/ FRACTURE . COMPARISON: None. TECHNIQUE: Multiplanar multisequence MRI of the lumbar spine were obtained without infusion of gadolinium. FINDINGS: [place] is made of five lumbar vertebrae. There is normal alignment of the lumbar vertebrae. The discs and cord signals are normal. No intrathecal mass is seen. Acute compression fracture of L1 vertebral body with mild retropulsion seen. This likely represents an osteoporotic fracture.. There is also edema within inferior endplate of T12. The conus medullaris terminates at the normal level. T12-L1: Disc bulging causes mild neural foraminal narrowing. There is compression fracture of L1 with mild retropulsion seen causing moderate central canal narrowing. L1-L2: There is posterior disc bulging with facet osteophyte complexes causing moderate bilateral neural foraminal narrowing. There is mild central canal narrowing. L2-L3: There is disc bulging with facet joint arthropathy resulting in moderate to severe bilateral neural foraminal stenosis and moderate to severe central canal stenosis. L3-L4: There is disc bulging to the right causing severe right neural foraminal stenosis and moderate left neural foraminal narrowing. There is mild central canal narrowing. L4-L5: There is central disc bulging resulting in severe central canal stenosis and moderate bilateral neural foraminal narrowing. L5-S1: There is disc bulging with facet arthropathy causing mild bilateral neural foraminal narrowing and mild central canal narrowing. IMPRESSION: Findings suggestive of acute osteoporotic fracture of L1 vertebral body with mild retropulsion. If patient has point tenderness, consultation for vertebral augmentation is recommended. Multilevel degenerative changes with disc bulging causing moderate to severe neural foraminal and central canal stenosis as above. Reviewed, dictated and finalized at location S. IMPRESSION: Findings suggestive of acute osteoporotic fracture of L1 vertebral body with mi ld retropulsion. If patient has point tenderness, consultation for vertebral au gmentation is recommended. Multilevel degenerative changes with disc bulging causing moderate to severe ne ural foraminal and central canal stenosis as above.
--- OUTSIDE RECORDS SUMMARY | 2025-03-14 21:03 | XMS_ITS | Clinical Summary ---
Author Organization 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 Active Active Problems Problem Noted Date [...] B AETNA MEDICARE SUPP AESSI Care Teams Email Marketing Specialist Relationship Specialty Start Date End Date Adithya Waite MD [address] [place] [phone] PCP - General Internal Medicine 12/31/16
--- OUTSIDE RECORDS SUMMARY | 2025-03-14 21:03 | XMS_ITS | Encounter Summary ---
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
--- OUTSIDE RECORDS SUMMARY | 2025-03-14 21:03 | XMS_ITS | Clinical Summary ---
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
--- OUTSIDE RECORDS SUMMARY | 2025-03-14 21:03 | XMS_ITS | Patient Health Record ---
Author Organization [facility] Address [address] [place], [place] [address] Care Team Providers Care Personal Chef Name Role Phone JOSUE LOYA Unavailable [phone] Adithya Waite Unavailable Unavailable Reason For Referral No Information Social History Social History Additional Details Category Social Info Options Details Migrated Social History Migrated Social History Smoking Status : Former smoker , History of tobacco use : Plan Of Treatment No Information Insurance Providers Payer Name Payer Address Payer Phone Subscriber Number Group Number Insured Name Patient Relationship to Insured Coverage Start Date Coverage End Date Medicare Part B [place] [address] [place] [address] [id number] FRANK GENAO Self - patient is the insured [facility] Insurance [address] [address] [place] [address] [id number] FRANK GENAO Self - patient is the insured
== END 2025-03-14 15:59 | disposition home or self-care (01) ==
PROVIDERS: PCP Internal Medicine; Visit Provider Pain Medicine Pain Medicine
DX: M80.08XA Age-related osteoporosis with current pathological fracture, vertebra(e), initial encounter for fracture (principal); M48.061 Spinal stenosis, lumbar region without neurogenic claudication
CPT/HCPCS: 72148

== ENCOUNTER 2025-04-04 14:50 | Emergency (ER) | payer MEDICARE, SELFPAY ==
--- NOTE | ~2025-04-04 | XR_ITS ---
EXAMINATION: XR chest 1V portable COMPARISON: No comparisons available. HISTORY: anasarca FINDINGS: Scattered bilateral upper lobe infiltrates. No pneumothorax. Mild cardiomegaly. Mediastinal and hilar contours are within normal limits. Bony thorax no acute abnormality. Miscellaneous: None Impression: Probable early pneumonia Reviewed, dictated and finalized at location [facility] [employer] Impression: Probable early pneumonia
[2025-04-04 14:50] VITALS: BP 156/94; PULSE 95; RESP 18; TEMP 36.6; O2SAT 98
--- OUTSIDE RECORDS SUMMARY | 2025-04-04 14:55 | XMS_ITS | Patient Health Record ---
Author Organization [facility] Address [address] [place], [place] [address] Care Team Providers Care Fleet Maintenance Foreman Name Role Phone JOSUE LOYA Unavailable [phone] Adithya Waite Unavailable Unavailable Reason For Referral [...] Date Coverage End Date Medicare Part B [place] [address] [place] [address] [id number] FRANK GENAO Self - patient is the insured [facility] Insurance [address] [address] [place] [address] [id number] FRANK GENAO Self - patient is the insured
--- OUTSIDE RECORDS SUMMARY | 2025-04-04 14:55 | XMS_ITS | Encounter Summary ---
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
--- OUTSIDE RECORDS SUMMARY | 2025-04-04 14:55 | XMS_ITS | Clinical Summary ---
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
--- OUTSIDE RECORDS SUMMARY | 2025-04-04 14:55 | XMS_ITS | Clinical Summary ---
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 Active Active Problems Problem Noted Date Diagnosed [...] B AETNA MEDICARE SUPP AESSI Care Teams Director Of Patient Care Relationship Specialty Start Date End Date Adithya Waite MD [address] [place] [address] PCP - General Internal Medicine 12/31/16
--- NOTE | 2025-04-04 15:00 | ED_ITS ---
HPI - General Adult General Chief complaint: Urogenital-Female Stated complaint: back pain; UTI symptoms Time Seen by Provider: 04/04/25 14:53 History of Present Illness HPI narrative: Reena is an 85F with a PMH of hypothyroidism that presented to the ED with a few days of bilateral flank pain that is now accompanied with dysuria and urinary frequency. No fevers, nausea or vomiting. No falls. She also reports that she has had worsening lower extremity swelling for some time. Related Data Home Medications ?Medication ?Instructions ?Recorded ?Confirmed ?Last Taken ?Type levothyroxine 50 mcg tablet 50 mcg PO DAILY 09/04/21 0 08/24/24 08/08/22 History 50 mcg Allergies Allergy/AdvReac Type Severity Reaction Status Date / Time No Known Allergies Allergy Verified 04/04/25 15:51 Review of Systems 2 Constitutional: Constitutional: Reports no additional constitutional complaints [facility] Past Medical History Medical History Compression fracture of lumbar vertebra, non-traumatic Exam 2 Const: General: cooperative, healthy appearing, comfortable, no acute distress, well developed, alert, awake and Physically active O rientation/consciousness: oriented to person, oriented to place and oriented to time HENMT: Head: normal to inspection, normocephalic and atraumatic Ears: h earing grossly normal bilaterally and external ears normal Face/Nose/Sinus: N ormal external nose present Eyes: General: appearance normal, both eyes and all related structures P eriorbital: periorbital findings normal Sclera: sclerae normal Pupils: E qual, round and reactive pupils present Neck: Neck: normal visual inspection Chest: Chest palpation & inspection: normal inspection of the chest Resp: Effort & Inspection: normal respiratory effort, able to speak in complete sentences and no respiratory distress Auscultation: clear to auscultation bilaterally Cardio: Jugular venous distension: no JVD Rate: regular rate Rhythm: r egular rhythm Other: 4+ pitting edema in the lower extremitie s. Skin: General skin exam: normal color and no rashes or lesions noted Neuro: General: oriented to person, oriented to place and oriented to time Cranial nerves: Yes Equal, round and reactive pupils present Extrem: General: normal to inspection Course Course Emergency Course: Ordered labs and XR chest as well as hydrocodone for the pain. She stated Tylenol does not work for her. EXAMINATION: XR chest 1V portable COMPARISON: No comparisons available. HISTORY: anasarca FINDINGS: Scattered bilateral upper lobe infiltrates. No pneumothorax. Mild cardiomegaly. Mediastinal and hilar contours are within normal limits. Bony thorax no acute abnormality. Miscellaneous: None Impression: Probable early pneumonia Given levofloxacin for pneumonia. BNP elevated with edema c/w CHF. Will discharge home with lasix to f/u with PCP. Vital Signs Vital signs: Vital Signs Temperature 97.8 F 04/04/25 14:50 Pulse Rate 95 04/04/25 14:50 Respiratory Rate 18 04/04/25 14:50 Blood Pressure 156/94 H 04/04/25 14:50 Pulse Oximetry 98 04/04/25 14:50 Oxygen Delivery Room Air 04/04/25 14:50 Temperature 97.8 F 04/04/25 14:50 Pulse Rate 79 04/04/25 15:53 Respiratory Rate 20 04/04/25 15:53 Blood Pressure 156/83 H 04/04/25 15:53 Pulse Oximetry 97 04/04/25 15:53 Oxygen Delivery Room Air 04/04/25 15:53 Medical Decision Making Vital Signs Vital Signs: Vital Signs Temperature 97.8 F 04/04/25 14:50 Pulse Rate 95 04/04/25 14:50 Respiratory Rate 18 04/04/25 14:50 Blood Pressure 156/94 H 04/04/25 14:50 Pulse Oximetry 98 04/04/25 14:50 Oxygen Delivery Room Air 04/04/25 14:50 Temperature 97.8 F 04/04/25 14:50 Pulse Rate 79 04/04/25 15:53 Respiratory Rate 20 04/04/25 15:53 Blood Pressure 156/83 H 04/04/25 15:53 Pulse Oximetry 97 04/04/25 15:53 Oxygen Delivery Room Air 04/04/25 15:53 Lab Data 04/04/25 15:06 04/04/25 15:06 Labs: Lab Results 04/04/25 04/04/25 Range/Units 15:06 15:15 WBC 4.9 (4.8-10.8) K/mm3 RBC 3.43 L (4.20-5.40) M/mm3 Hgb 11.0 L (11.7-13.8) g/dL Hct 33.8 L (35.0-42.0) % MCV 98.5 (78.0-102.0) fL MCH 32.1 H (27.0-31.0) pg MCHC 32.5 (32-36) g/dL RDW 12.6 (11.6-14.4) % Plt Count 144 L (150-420) K/mm3 MPV 11.3 (9.2-11.8) fl Immature Gran % (Auto) 0.4 H (0.0-0.0) % Neut % (Auto) 74.4 H (50.0-70.0) % Lymph % (Auto) 11.5 L (18.0-42.0) % [place] % (Auto) 12.7 H (2.0-11.0) % Eos % (Auto) 0.6 L (1.0-6.0) % Baso % (Auto) 0.4 (0.0-1.0) % Lymph # (Auto) 0.56 L (1.10-4.50) K/mm3 [place] # (Auto) 0.62 (0.10-0.90) K/mm3 Eos # (Auto) 0.03 (0.02-0.50) K/mm3 Baso # (Auto) 0.02 (0.00-0.10) K/mm3 Abs Immat Gran (auto) 0.02 H (0.00-0.00) K/mm3 Absolute Neuts (auto) 3.63 (1.70-7.20) K/mm3 Absolute Nucleated RBC 0.00 (0.00-0.00) K/mm3 Nucleated RBC % 0.0 (0-0.0) % Sodium 139 (137-145) mmol/L Potassium 3.2 L (3.4-5.0) mmol/L Chloride 99 (98-107) mmol/L Carbon Dioxide 32 H (22-30) mmol/L Anion Gap 8 (4-12) mmol/L BUN 15 (7-17) mg/dL Creatinine 0.73 (0.7-1.0) mg/dL Estim Creat Clear Calc Not Reportable Estimated GFR > 60 (59 - ) Glucose 114 H (65-110) mg/dL Calculated Osmolality 289 (285-295) mOsm/kg Calcium 9.4 (8.4-10.2) mg/dL Total Bilirubin 1.3 (0.2-1.3) mg/dL AST 34 (14-36) U/L ALT 19 (6-35) U/L Alkaline Phosphatase 103 (38-126) U/L NT-Pro-B Natriuret Pep 492 H (19.9-100) pg/mL Total Protein 7.3 (6.3-8.2) g/dL Albumin 4.5 (3.5-5.1) g/dL Urine Color Yellow (Yellow) Urine Appearance Clear (Clear) Urine pH 5.5 (5.0-8.0) Ur Specific [place] 1.020 (1.010-1.020) Urine Protein Negative (Negative) Urine Glucose (UA) Negative (Negative) Urine Ketones Trace H (Negative) Ur Blood (Man) Trace-intact H (Negative) Urine Nitrate Negative (Negative) Urine Bilirubin Negative (Negative) Urine Urobilinogen 0.2 (0.2-1.0) mg/dL Leukocyte Esterase Rfl Negative (Negative) CONNIE/UL Discharge Plan Discharge Clinical Impression: Pneumonia, Bilateral edema of lower extremity Patient Disposition: Home Condition: Stable Instructions: Antibiotic Form Patient Language: Mohawk Prescriptions: New levofloxacin 750 mg tablet 750 mg PO DAILY Qty: 4 0RF furosemide [Lasix] 20 mg tablet 20 mg PO DAILY Qty: 5 0RF No Action levothyroxine 50 mcg Tablet 50 mcg PO DAILY hydrocodone-acetaminophen 5-325 mg tablet 1 tablet PO Q6H PRN (Reason: pain) Qty: 20 0RF Follow-up/Referrals: Adithya Waite MD [Primary Care Provider, Internal Medicine]
[2025-04-04 15:10] LABS: Hematocrit 33.8 % (35.0-42.0); Hemoglobin 11.0 g/dL (11.7-13.8); Immature Granulocyte Percent A 0.4 % (0.0-0.0); Lymphocytes Absolute Auto 0.56 K/mm3 (1.10-4.50); Mean Corpuscular HGB Conc 32.5 g/dL (32-36); Mean Corpuscular Hemoglobin 32.1 pg (27.0-31.0); Mean Corpuscular Volume 98.5 fL (78.0-102.0); Nucleated Red Blood Cells Absolute Auto 0.00 K/mm3 (0.00-0.00); Nucleated Red Blood Cells Perc 0.0 % (0-0.0); Platelet Count Result 144 K/mm3 (150-420); Red Blood Count 3.43 M/mm3 (4.20-5.40); White Blood Count 4.9 K/mm3 (4.8-10.8)
[2025-04-04] MEDS: HYDROcodone/acetaminophen (*CRX) 5-325 MG TABLET 1 TAB PO (15:15)
[2025-04-04 15:19] LABS: Add Urine Microscopic? NO; Appearance Urine Clear (Clear); Glucose Urine UA Negative (Negative); Leukocyte Esterase Ur Negative LEU/UL (Negative); Nitrate Urine Negative (Negative); Specific Grav Ur 1.020 (1.010-1.020)
[2025-04-04 15:20] LABS: Alanine Aminotransferase 19 U/L (6-35); Albumin Level 4.5 g/dL (3.5-5.1); Alkaline Phosphatase 103 U/L (38-126); Anion Gap 8 mmol/L (4-12); Aspartate Amino Transferase 34 U/L (14-36); Bilirubin,Total 1.3 mg/dL (0.2-1.3); Blood Urea Nitrogen 15 mg/dL (7-17); Calcium 9.4 mg/dL (8.4-10.2); Carbon Dioxide 32 mmol/L (22-30); Chloride 99 mmol/L (98-107); Estimated Glomerular Filt Rate > 60; Glucose 114 mg/dL (65-110); Osmolality Calculated 289 mOsm/kg (285-295); Potassium 3.2 mmol/L (3.4-5.0); Sodium 139 mmol/L (137-145); Total Protein 7.3 g/dL (6.3-8.2)
[2025-04-04 15:29] LABS: NT Pro B Type Natriuretic Pept 492 pg/mL (19.9-100)
[2025-04-04] MEDS: levoFLOXacin TAB 500 MG, levoFLOXacin TAB 250 MG 750 MG PO (15:49)
[2025-04-04 15:53] VITALS: BP 156/83; PULSE 79; RESP 20; O2SAT 97
== END 2025-04-04 15:53 | disposition home or self-care (01) ==
PROVIDERS: Emergency Provider Family Medicine; PCP Internal Medicine
DX: J18.9 Pneumonia, unspecified organism (principal); R60.0 Localized edema
CPT/HCPCS: 36415; 71045; 80053; 81003; 83880; 85025; 99283; A9270

== ENCOUNTER 2025-04-30 16:36 | Outpatient (CLI) | payer MEDICARE, SELFPAY ==
--- OUTSIDE RECORDS SUMMARY | 2025-04-30 16:39 | XMS_ITS | Encounter Summary ---
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
--- OUTSIDE RECORDS SUMMARY | 2025-04-30 16:39 | XMS_ITS | Clinical Summary ---
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
--- OUTSIDE RECORDS SUMMARY | 2025-04-30 16:40 | XMS_ITS | Clinical Summary ---
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 Active Active Problems Problem Noted Date Diagnosed [...] B [employer]ARE SUPP AESSI Care Teams Appeals Referee Relationship Specialty Start Date End Date Adithya Waite MD [address] [place] [address] PCP - General Internal Medicine 12/31/16
--- OUTSIDE RECORDS SUMMARY | 2025-04-30 16:40 | XMS_ITS | Patient Health Record ---
Author Organization [facility] Address [address] [place], [place] [id number] Care Team Providers Care Auto Hiker Name Role Phone JOSUE LOYA Unavailable [phone] Adithya Waite Unavailable Unavailable Reason For Referral [...] Date Coverage End Date Medicare Part B [place] [address] [place] [address] [id number] FRANK GENAO Self - patient is the insured [employer] [address] [address] [place] [address] [id number] FRANK GENAO Self - patient is the insured
[2025-04-30 17:19] LABS: Anion Gap 7 mmol/L (4-12); Blood Urea Nitrogen 20 mg/dL (7-17); Calcium 9.4 mg/dL (8.4-10.2); Carbon Dioxide 32 mmol/L (22-30); Chloride 101 mmol/L (98-107); Estimated Glomerular Filt Rate > 60; Glucose 102 mg/dL (65-110); Osmolality Calculated 292 mOsm/kg (285-295); Potassium 3.4 mmol/L (3.4-5.0); Sodium 140 mmol/L (137-145)
== END 2025-04-30 16:37 | disposition home or self-care (01) ==
LOC: CHSLAB 16:38
PROVIDERS: PCP Internal Medicine; Visit Provider Internal Medicine
DX: E87.6 Hypokalemia (principal)
CPT/HCPCS: 36415; 80048